=== PATIENT | female | born 1965 | race Caucasian/White ===

== ENCOUNTER 2016-05-24 08:30 | Outpatient (CLI) | payer OTHER ==
[~2016-05-24] VITALS: Ht 157.5 cm; Wt 59.1 kg
--- NOTE | ~2016-05-24 | HEMODYNAMI ---
PATIENT:SUPA MERINO MEDICAL RECORD: [id number] : 63 LOCATION:[facility] ADMISSION DATE: 05/24/16 Generatedon:05/24/201612:23 Patient name: SUPA MERINO Patient #: [id number] SSN: : 1965 Date of study: 05/24/2016 Page: Of Hemodynamic Procedure Report Patient Data Patient Demographics Procedure consent was obtained First Name: SUPA Gender: Female Last Name: ANGELIQUE : 1965 Middle Initial: R Age: 50 year(s) Patient #: [id number] Race: Additional ID: [id number] Contact details [address]: [address] [place] [address] State: [place] City: [place] Zip code: [address] Past Medical History Allergies Allergen Reaction Date Comments Reported Iodine 04/26/2015 IV contrast dye 04/26/2015 Admission Admission Data Admission Date: 05/24/2016 Admission Time: 8:30 Procedure Procedure Types Cath Procedure Peripheral Cath Diagnostic Procedure Abd/Extremity Extremities AFRO Lower Ext Arterio Procedure Description Procedure Date Procedure Date: 05/24/2016 Procedure Start Time: 10:55 Procedure Staff Name Function Fletcher Trujillo MD Performing Physician Carina Price RT Scrub Zac Cortez RT Monitor Lacie Landaverde RN Nurse Procedure Data Cath Procedure Fluoroscopy Diagnostic fluoroscopy Total fluoroscopy Time: time: 11.1 min 11.1 min Diagnostic fluoroscopy Total fluoroscopy dose: 889 dose: 889 mGy mGy Contrast Material Contrast Material Type Amount (ml) Isovue 300 156 Entry Location Entry Primary Successful Side Size Upsize Upsize Entry Closure Succes sful Closure Location (Fr) 1 (Fr) 2 (Fr) Remarks Device Remarks Femoral Right 5 Fr Exoseal artery Diagnostic catheters Device Type Used For End Catheter Placement Merit ULTRA BOLUS FLUSH Lower extremity 5Fr 65CM catheter arteriography Procedure Medications Medication Administration Route Dosage Oxygen NC 3 l/min Heparin Flush Bag added to field 3 bags (1000units/500ml NS) Lidocaine 1% added to field 20 Versed I.V. 1 mg Fentanyl I.V. 50 mcg Fentanyl I.V. 50 mcg Fentanyl I.V. 50 mcg Versed I.V. 1 mg Zofran I.V. 4 mg Versed I.V. 1 mg Fentanyl I.V. 50 mcg Versed I.V. 1 mg Solumedrol I.V. 125 mg Fentanyl I.V. 50 mcg Dilaudid I.V. 1 mg Nitroglycerin IC/IA I.A. 200 mcg Dilaudid I.V. 1 mg Versed I.V. 1 mg Fentanyl I.V. 50 mcg Versed I.V. 1 mg Hemodynamics Rest Heart Rate: 96 (bpm) Pressure Samples Time Site Value (mmHg) Purpose Heart Use Rate(bpm) 12:06 AO 131/88(109) Snapshot 94 12:06 AO 134/92(112) Snapshot 95 12:07 AO 132/89(110) Snapshot 93 12:07 AO 129/88(107) Snapshot 93 12:08 AO 116/88(102) Snapshot 91 12:08 AO 115/88(102) Snapshot 91 12:08 AO 114/90(102) Snapshot 92 12:08 AO 112/91(101) Snapshot 92 Snapshots Pre Cath Intra NCS Post Cath Vital Signs Time Heart Resp SPO2 NIBP (mmHg) Rhythm Pain Status Sedation Rate (ipm) (%) Level (bpm) 10:41:41 96 20 97 181/124(156) NSR 7 (11) , 10(A) Very intense 10:46:01 95 22 97 176/105(145) NSR 7 (11) , 10(A) Very intense 10:50:19 101 17 96 161/115(133) NSR 5 (11) , 10(A) Very distressing 10:54:37 100 17 96 150/101(113) NSR 5 (11) , 10(A) Very distressing 10:58:45 102 15 97 161/117(136) NSR 5 (11) , 10(A) Very distressing 11:02:57 99 17 97 148/107(128) NSR 4 (11) , 10(A) Distressing 11:07:03 98 22 95 149/107(130) NSR 3 (11) , 10(A) Tolerable 11:11:10 96 18 95 144/100(122) NSR 3 (11) , 10(A) Tolerable 11:15:16 99 26 97 145/101(131) NSR 3 (11) , 10(A) Tolerable 11:19:22 100 27 97 140/98(116) NSR 3 (11) , 10(A) Tolerable 11:23:26 102 28 96 137/103(113) NSR 3 (11) , 10(A) Tolerable 11:27:30 95 18 97 142/101(124) NSR 3 (11) , 10(A) Tolerable 11:31:35 96 13 97 142/103(122) NSR 3 (11) , 10(A) Tolerable 11:35:39 98 9 97 149/106(128) NSR 6 (11) , 10(A) Intense 11:39:47 95 28 96 156/112(137) NSR 6 (11) , 10(A) Intense 11:43:57 96 15 96 133/96(114) NSR 6 (11) , 10(A) Intense 11:47:58 95 25 96 142/100(125) NSR 6 (11) , 10(A) Intense 11:52:04 91 18 96 148/104(127) NSR 6 (11) , 10(A) Intense 11:56:12 93 15 96 144/104(122) NSR 4 (11) , 10(A) Distressing 12:00:18 95 23 96 135/103(121) NSR 3 (11) , 10(A) Tolerable 12:04:22 94 25 97 138/99(126) NSR 3 (11) , 10(A) Tolerable 12:08:27 92 14 97 131/90(111) NSR 3 (11) , 10(A) Tolerable 12:12:29 91 13 97 125/96(111) NSR 3 (11) , 10(A) Tolerable 12:16:37 92 22 95 120/78(107) NSR 3 (11) , 10(A) Tolerable 12:20:34 87 11 96 124/93(112) NSR 3 (11) , 10(A) Tolerable Medications Time Medication Route Dose Verified Delivered Reason Notes E ffectiveness by by 10:47:50 Fentanyl I.V. 50 mcg Lacie Lacie for knee King DELIA Landaverde RN pain 10:48:44 Oxygen NC 3 Lacie Lacie Per protocol l/min King DELIA Landaverde RN 10:49:19 Heparin Flush added 3 bags Lacie Lacie used for Bag to King DELIA Landaverde RN procedure (1000units/500ml field NS) 10:49:36 Lidocaine 1% added 20ml Lacie Lacie for local to vial King DELIA Landaverde RN anesthetic field 10:52:52 Versed I.V. 1 mg Lacie Lacie for sedation King DELIA Landaverde RN 10:53:16 Fentanyl I.V. 50 mcg Lacie Lacie for sedation King DELIA Landaverde RN 10:55:48 Fentanyl I.V. 50 mcg Lacie Lacie for knee King DELIA Landaverde RN pain 10:55:50 Versed I.V. 1 mg Lacie Lacie for sedation King DELIA Landaverde RN 11:00:54 Versed I.V. 1 mg Lacie Lacie for sedation King DELIA Landaverde RN 11:04:13 Zofran I.V. 4 mg Lacie Lacie for nausea King DELIA Landaverde RN 11:05:55 Versed I.V. 1 mg Lacie Lacie for sedation King DELIA Landaverde RN 11:06:03 Fentanyl I.V. 50 mcg Lacie Lacie for sedation King DELIA Landaverde RN 11:25:50 Solumedrol I.V. 125 mg Lacie Lacie For allergic King DELIA Landaverde RN reaction 11:26:08 Fentanyl I.V. 50 mcg Lacie Lacie for sedation King DELIA Landaverde RN 11:39:41 Dilaudid I.V. 1mg Lacie Lacie for back King DELIA Landaverde RN pain 11:42:54 Nitroglycerin I.A. 200mcg Lacie Fletcher for IC/IA Akhil DELIA Trujillo MD vasodilation 11:52:28 Dilaudid I.V. 1mg Lacie Lacie for back King DELIA Landaverde RN pain 12:04:26 Versed I.V. 1 mg Lacie Lacie for sedation King DELIA Landaverde RN 12:04:38 Fentanyl I.V. 50 mcg Lacie Lacie for sedation King DELIA Landaverde RN 12:11:20 Versed I.V. 1 mg Lacie Lacie for sedation King DELIA Landaverde terrazzo mechanic Log Time Note 8:50:16 Time tracking: Regular hours 8:50:34 Plan of Care:Hemodynamics will remain stable., Cardiac rhythm will remain stable., Comfort level will be maintained., Respiratory function will remain adequate., Patient/ family verbilizes understanding of procedure., Procedure tolerated without complication., Recovers from procedure without complications.. 10:23:03 Zac Dana RT (R) (CV) sent for patient. Start room use. 10:23:15 Correct patient and procedure confirmed by team. 10:23:16 Signed procedure consent form obtained from patient. 10:23:17 ECG and BP/O2 sat monitors applied to patient. 10:23:19 Full Disclosure recording started 10:23:19 - 10:23:23 H&P Date Dictated: 05/24/2016 H&P Addendum completed by physician on day of procedure. (MUST COMPLETE FOR ALL OUTPATIENTS). 10:23:24 Pre-procedure instructions explained to patient. 10:23:25 Pre-op teaching completed and patient verbalized understanding. 10:23:27 Family in waiting room. 10:23:32 Patient NPO since Midnight. 10:23:40 Is the patient allergic to Iodine/contrast media? No. 10:23:41 Is patient on blood thinner?Yes 10:23:45 ACC The patient was administered the following blood thiners within the last 24 hours: ACCAspirin, ACCPlavix 10:23:47 Patient diabetic? No. 10:23:48 - 10:23:49 ----Pre-sedation anethsthesia assessment.---- 10:23:52 Previous problem with sedation/anesthesia? No ? 10:23:53 Snore? Yes 10:23:55 Sleep apnea? No 10:23:57 Deviated septum? No 10:24:02 Opens mouth fully? Yes 10:24:11 Airway obstruction? No ? 10:24:17 Sticks out tongue? Yes 10:24:25 Dentures? No ? 10:24:30 Use device set IR Diagnostic 10:24:31 Sterile Angiographic Pack opened to sterile field. 10:24:32 Bag Decanter opened to sterile field. 10:24:33 Acist Manifold opened to sterile field. 10:24:33 Acist Hand Control opened to sterile field. 10:24:34 Acist Syringe opened to sterile field. 10:34:40 Pre procedure: right dorsailis pedis pulse Doppler 10:34:43 Pre procedure: left dorsailis pedis pulse Doppler 10:34:47 Pre procedure: right posterior tibial pulse Doppler 10:34:51 Pre procedure: left posterior tibial pulse Doppler 10:34:59 Patient pain scale 0/10 no pain. 10:35:26 IV patent on arrival in right wrist with 0.9% NaCl at 10ml/hr. 10:35:32 Alarms reviewed by R. N. 10:35:33 Sharps counted by scrub and verified by R.N. 10:35:37 Bilateral groins area was prepped with chlora-prep and draped in steril e fashion 10:37:08 Dr Trujillo arrived. Assessed patient . Procedure explained. 10:40:33 Vital chart was started 10:45:51 Baseline sample Acquired. 10:45:53 Rhythm: sinus rhythm 10:47:50 Fentanyl 50 mcg I.V. was given by Lacie Landaverde RN; for knee pain; 10:48:44 Oxygen 3 l/min NC was given by Lacie Landaverde RN; Per protocol; 10:49:19 Heparin Flush Bag (1000units/500ml NS) 3 bags added to field was given by Lacie Landaverde RN; used for procedure; 10:49:36 Lidocaine 1% 20ml vial added to field was given by Lacie Landaverde RN; for local anesthetic; 10:51:30 Physician arrived 10:51:30 --------ALL STOP TIME OUT------ 10:51:31 Final Timeout: patient, procedure, and site verified with staff and physician. All members of the team are in agreement. 10:51:34 Bilateral groins site verified by team. 10:51:47 Physical assessment completed. ASA score P 3 - A patient with severe systemic disease as per Fletcher Trujillo MD. 10:51:50 Sedation plan: IV Moderate Sedation Versed, Fentanyl 10:52:52 Versed 1 mg I.V. was given by Lacie Landaverde RN; for sedation; 10:53:16 Fentanyl 50 mcg I.V. was given by Lacie Landaverde RN; for sedation; 10:55:48 Fentanyl 50 mcg I.V. was given by Lacie Landaverde RN; for knee pain; 10:55:50 Versed 1 mg I.V. was given by Lacie Landaverde RN; for sedation; 10:55:53 Procedure started. 10:56:23 A 5 Fr sheath was inserted into the Right Femoral artery 10:56:59 Cook CaLivingBenefitsSON 145cm guide wire opened to sterile field. 10:56:59 St Diego 5FR Sheath opened to sterile field. 10:57:00 Micropuncture VSI 4FR kit opened to sterile field. 10:57:01 TUBING, CONTRAST INJCTN HI PRES opened to sterile field. 10:58:21 A numberFire ULTRA BOLUS FLUSH 5Fr 65CM catheter was advanced over the wire and used for Lower extremity arteriography. 11:00:54 Versed 1 mg I.V. was given by Lacie Landaverde RN; for sedation; 11:04:13 Zofran 4 mg I.V. was given by Lacie Landaverde RN; for nausea; 11:05:55 Versed 1 mg I.V. was given by Lacie Landaverde RN; for sedation; 11:06:03 Fentanyl 50 mcg I.V. was given by Lacie Landaverde RN; for sedation; 11:21:48 Terumo ANGLE 180L glide wire opened to sterile field. 11:21:49 Terumo 5FR ANGLED 65CM glide catheter opened to sterile field. 11:21:56 Terumo TORQUE DEVICE PLASTIC .038 opened to sterile field. 11:25:50 Solumedrol 125 mg I.V. was given by Lacie Landaverde RN; For allergic reaction; 11:26:08 Fentanyl 50 mcg I.V. was given by Lacie Landaverde RN; for sedation; 11:27:55 Terumo ANGLE 260cm glide wire opened to sterile field. 11:27:55 Terumo 5FR ANGLED 100CM glide catheter opened to sterile field. 11:39:41 Dilaudid 1mg I.V. was given by Lacie Akhil RN; for back pain; 11:42:54 Nitroglycerin IC/IA 200mcg I.A. was given by Fletcher Trujillo MD; for vasodilation; 11:50:35 Cordis 5Fr Exoseal opened to sterile field. 11:52:28 Dilaudid 1mg I.V. was given by Lacie Landaverde RN; for back pain; 12:04:26 Versed 1 mg I.V. was given by Lacie Landaverde RN; for sedation; 12:04:38 Fentanyl 50 mcg I.V. was given by Lacie Landaverde RN; for sedation; 12:06:13 Zero performed for pressure channel P1 12:11:20 Versed 1 mg I.V. was given by Lacie Landaverde RN; for sedation; 12:12:46 Sheath removed intact; hemostasis achieved with Exoseal to the Right Femoral artery. 12:12:49 Procedure ended.(Physican Out) 12:13:18 Fluoroscopy time 11.10 minutes. 12:13:25 Fluoroscopy dose: 889 mGy 12:13:25 Flurop Dose total: 889 12:13:34 Contrast amount:Isovue 300 156ml. 12:13:35 Sharps counted by scrub and verified by R.N. 12:13:37 Insertion/operative site no bleeding no hematoma. 12:13:41 Post-op/insertion site Right Femoral artery dressed using a 4 x 4 and Tegaderm. 12:13:45 Post right femoral artery:stable 12:13:47 Post Procedure Pulses reassessed and unchanged 12:13:51 Post-procedure physical assessment completed. ASA score P 3 - A patient with severe systemic disease as per Fletcher Trujillo MD. 12:13:54 Post procedure rhythm: unchanged. 12:21:30 Patient transfered to Outpatients with Bed. 12:21:41 Post procedure instruction explained to patient.Patient verbalizes understanding. 12:21:42 Procedure and supply charges have been captured, reviewed, submitted an d are correct. 12:21:45 Report given to Outpatients. 12:23:07 Vital chart was stopped Device Usage Item Name Manufacture Quantity Catalog Number Hospital Part Current Min imal Lot# / Charge Number Stock Stock Serial# Code Sterile Cardinal 1 [id number] 5 Angiographic Health Pack Bag Decanter Microtek 1 369008 68185 177424 [employer] Acist Acist 1 83889 034062 043971 221215 5 Manifold [employer] Inc Acist Hand Acist 1 49011 236572 531644 041226 5 Control Medical [employer] Inc Acist Syringe Acist 1 58351 678023 103486 603213 20 Medical Systems Inc Cook ROOSEVELTSON [employer] 1 [id number] 144486 850774 [id number] wire [address] Diego 5FR St Diego 1 302579 344493 897060 5 [id number] Sheath Micropuncture VSI VASCULAR 1 7266V 705571 704416 5 VSI 4FR kit SOLUTIONS TUBING, Merit 1 [id number] 405180 662488 048147 5 CONTRAST Medical INJCTN HI PRES Merit ULTRA Merit 1 [id number] 106736 270735 5 BOLUS FLUSH Medical 5Fr 65CM catheter Terumo ANGLE Terumo 1 [id number] 220179 652436 558376 5 180L glide wire Terumo 5FR Terumo 1 CG507 821220 984493 5 ANGLED 65CM glide catheter Terumo TORQUE [place] 1 TD01 133210 425575 956176 5 DEVICE Scientific PLASTIC .038 Terumo ANGLE Terumo 1 [id number] 510011 721728 588286 5 260cm glide wire Terumo 5FR Terumo 1 CG508 608618 86309 615492 4 ANGLED 100CM glide catheter Cordis 5Fr Cardinal 1 EX500 414762 094083 380906 10 [id number] Exoseal Health Signature Audit [place] Stage Time Signature Unsigned Intra-Procedure 05/24/2016 Zac 12:23:04 PM Dana RT (R) (CV) Signatures Monitor : Zac Signature : Dana RT Date : Time : [facility] [address] [place] [address]
[~2016-05-24 08:30] MED LIST: AMITRIPTYLINE H50 MG PO; ASPIRIN81 MG PO; BRILINTA90 MG PO; CATAPRES0.1 MG PO; LIPITOR80 MG PO; LISINOPRIL5 MG PO; LOPRESSOR25 MG PO; NICODERM C1 PATCH .1 TRANSDERM; NORVASC10 MG PO; ZESTORETIC 10/11 TAB PO
[2016-05-24 09:53] VITALS: BP 137/91; Ht 157.5 cm; Wt 59.1 kg
[2016-05-24 10:04] LABS: BASOPHILS 0 % (0.0-2.0); EOSINOPHILS 0 % (0-7); HEMATOCRIT 42.8 % (36.0-48.0); HEMOGLOBIN 14.5 g/dL (12-16); IMMATURE GRANULOCYTES 0.2 % (0-5); MCH 32.5 pg (26.0-34.0); MCHC 33.9 g/dL (31.0-37.0); MONOCYTES 0.2 % (2-11); NEUTROPHILS 85.6 % (40-80); PLATELET COUNT 357 10x3/uL (130-400); RBC 4.46 10x6/uL (4.00-5.40); RDW 12.4 % (11.5-14.5); WBC 4.1 10x3/uL (4.8-10.8)
[2016-05-24 10:20] LABS: ANION GAP 13.8 mmol/L (8-16); CALCIUM 9.2 mg/dL (8.5-10.1); CARBON DIOXIDE 27.2 mmol/L (21.0-32.0); CREATININE - SERUM 1.1 mg/dL (0.6-1.3)
[2016-05-24 10:23] LABS: APTT 28.7 SECONDS (22.8-39.4); INR 0.92 (0.85-1.17); PROTIME 12.2 SECONDS (11.6-15.0)
--- NOTE | 2016-05-24 12:51 | NUR ---
DILAUDID 2MG SLOW IVP FOR C/O GROIN PAIN.
--- NOTE | 2016-05-24 13:26 | NUR ---
NO CHANGE IN PAIN. STATES "I HAVE A COCKTAIL I GIVE MYSELF AT HOME FOR PAIN." NORCO 5MG PO FOR C/O PAIN.
--- NOTE | 2016-05-24 13:50 | NUR ---
STATES PAIN IS DOWN TO A "4".
--- NOTE | 2016-05-24 15:30 | NUR ---
DISCHARGE INSTRUCTIONS GIVEN, VOICED UNDERSTANDING. DISCHARGED HOME VIA .
== END 2016-05-24 15:30 | disposition home or self-care (01) ==
LOC: D.OPS 08:30 → D.RAD 11:00 → D.SP 11:00 → D.OPS 15:30 → D.RAD 05-26 08:00 → D.SP 05-26 08:00
PROVIDERS: General Practice
DX: I70.202 Unspecified atherosclerosis of native arteries of extremities, left leg (principal); M79.605 Pain in left leg; M79.604 Pain in right leg

== ENCOUNTER → 2016-06-06 09:00 | Outpatient (CLI) | payer OTHER ==
[2016-05-24 09:53] VITALS: BMI 23.8
[~2016-06-06 09:00] MED LIST changes: +AMBIEN5 MG PO; +BENADRYL50 MG; +BUSPAR 15 MG TA15 MG PO; +LEXAPRO20 MG PO; +PLAVIX75 MG PO; +PREDNISONE50 MG PO; +PREVACID30 MG PO
== END | disposition home or self-care (01) ==
LOC: D.CT 09:00
DX: I73.9 Peripheral vascular disease, unspecified (principal)

== ENCOUNTER 2016-07-04 05:39 | Outpatient (CLI) | payer OTHER ==
[~2016-07-04] VITALS: Ht 154.9 cm; Wt 54.5 kg
--- NOTE | ~2016-07-04 | HEMODYNAMI ---
PATIENT:SUPA MERINO MEDICAL RECORD: [id number] : 63 LOCATION:[facility] ADMISSION DATE: 07/04/16 Generatedon:07/04/201610:04 Patient name: SUPA MERINO Patient #: [id number] SSN: : 1965 Date of study: 07/04/2016 Page: Of Hemodynamic Procedure Report Patient Data Patient Demographics Procedure consent was obtained First Name: SUPA Gender: Female Last Name: ANGELIQUE : 1965 Middle Initial: R Age: 50 year(s) Patient #: [id number] Race: Additional ID: [id number] Contact details [address]: [address] [place] [address] State: [place] City: [place] Zip code: [address] Past Medical History Allergies Allergen Reaction Date Comments Reported Iodine 04/26/2015 IV contrast dye 04/26/2015 Admission Admission Data Admission Date: 07/04/2016 Admission Time: 5:39 Procedure Procedure Types Cath Procedure Peripheral Cath Diagnostic Procedure Miscellaneous Procedure Description Procedure Date Procedure Date: 07/04/2016 Procedure Start Time: 8:20 Procedure Staff Name Function Fletcher Trujillo MD Performing Physician Carina Price RT Scrub Nuria Jalloh RN Nurse Zac Cortez RT Monitor Procedure Data Cath Procedure Fluoroscopy Diagnostic fluoroscopy Total fluoroscopy Time: time: 10.7 min 10.7 min Diagnostic fluoroscopy Total fluoroscopy dose: 686 dose: 686 mGy mGy Contrast Material Contrast Material Type Amount (ml) Isovue 300 145 Entry Location Entry Primary Successful Side Size Upsize 1 Upsize Entry Closure Ramey ccessful Closure Location (Fr) (Fr) 2 (Fr) Remarks Device Remarks Femoral Right 5 Fr 6 Fr artery Mid-Length Diagnostic catheters Device Type Used For End Catheter Placement Merit ULTRA BOLUS FLUSH 5Fr 65CM catheter Procedure Medications Medication Administration Route Dosage Benadryl I.V. 50 mg Fentanyl I.V. 50 mcg Versed 1 mg Versed 1 mg Fentanyl I.V. 50 mcg Fentanyl I.V. 50 mcg Versed I.V. 1 mg Versed I.V. 1 mg Fentanyl I.V. 50 mcg Fentanyl I.V. 50 mcg Versed I.V. 1 mg Fentanyl I.V. 50 mcg Versed I.V. 1 mg Heparin Bolus I.V. 5000 units Versed I.V. 1 mg Fentanyl I.V. 50 mcg Nitroglycerin IC/IA I.A. 200 mcg Hemodynamics Rest Heart Rate: 90 (bpm) Snapshots Pre Cath Intra NCS Post Cath Vital Signs Time Heart Resp SPO2 NIBP (mmHg) Rhythm Pain Sedation Rate (ipm) (%) Status Level (bpm) 7:58:42 91 11 98 No Cuff NSR 0 (11) 10(A) , No pain 8:01:57 90 21 98 182/121(150) NSR 0 (11) 10(A) , No pain 8:06:17 91 23 96 171/118(143) NSR 0 (11) 10(A) , No pain 8:10:31 93 18 97 168/110(144) NSR 0 (11) 10(A) , No pain 8:14:45 91 14 98 151/112(128) NSR 0 (11) 10(A) , No pain 8:18:53 93 21 97 160/114(138) NSR 0 (11) 10(A) , No pain 8:23:05 95 19 98 158/110(138) NSR 0 (11) 10(A) , No pain 8:27:15 96 23 97 163/110(134) NSR 0 (11) 10(A) , No pain 8:31:26 93 15 98 157/103(132) NSR 0 (11) 9(A) , No pain 8:35:36 93 14 96 156/102(129) NSR 0 (11) 9(A) , No pain 8:39:46 86 13 98 141/95(114) NSR 0 (11) 9(A) , No pain 8:43:52 82 12 97 127/86(101) NSR 0 (11) 9(A) , No pain 8:47:54 79 15 98 124/83(100) NSR 0 (11) 9(A) , No pain 8:51:58 78 12 96 121/78(101) NSR 0 (11) 9(A) , No pain 8:55:59 77 12 98 114/76(92) NSR 0 (11) 9(A) , No pain 8:59:59 77 12 96 113/75(91) NSR 0 (11) 9(A) , No pain 9:03:56 77 14 96 117/81(96) NSR 0 (11) 9(A) , No pain 9:07:56 76 12 98 120/79(93) NSR 0 (11) 9(A) , No pain 9:11:56 77 14 97 120/80(94) NSR 0 (11) 9(A) , No pain 9:15:57 75 14 98 119/76(102) NSR 0 (11) 9(A) , No pain 9:19:59 75 13 98 119/77(101) NSR 0 (11) 9(A) , No pain 9:24:01 75 13 98 121/74(103) NSR 0 (11) 9(A) , No pain 9:28:00 75 13 98 125/83(109) NSR 0 (11) 9(A) , No pain 9:32:04 74 13 97 116/80(96) NSR 0 (11) 9(A) , No pain 9:36:04 73 13 98 121/79(94) NSR 0 (11) 9(A) , No pain 9:40:10 74 14 96 110/65(85) NSR 0 (11) 9(A) , No pain 9:44:07 80 19 97 117/80(95) NSR 0 (11) 9(A) , No pain 9:48:54 88 31 96 143/103(128) NSR 0 (11) 9(A) , No pain 9:52:58 89 13 98 158/114(135) NSR 0 (11) 9(A) , No pain 9:57:08 87 14 96 164/125(151) NSR 0 (11) 9(A) , No pain 10:01:20 87 13 97 162/119(147) NSR 0 (11) 9(A) , No pain Medications Time Medication Route Dose Verified Delivered Reason Notes Eff ectiveness by by 7:52:24 Benadryl I.V. 50 mg Nuria Nuria contrast Yeimi Jalloh allergy RN RN prophylaxis 8:03:43 Fentanyl I.V. 50 Nuria Nuria for sedation mcg Yeimi Jalloh RN RN 8:03:54 Versed 1 mg Nuria Nuria for sedation Yeimi Jalloh RN RN 8:08:33 Versed 1 mg Nuria Nuria for sedation Yeimi Jalloh RN RN 8:08:40 Fentanyl I.V. 50 Nuria Nuria for sedation mcg Yeimi Jalloh RN RN 8:20:26 Fentanyl I.V. 50 Nuria Nuria for sedation mcg Yeimi Jalloh RN RN 8:20:37 Versed I.V. 1 mg Nuria Nuria for sedation Yeimi Jalloh RN RN 8:25:43 Versed I.V. 1 mg Nuria Nuria for sedation Yeimi Jalloh RN RN 8:25:51 Fentanyl I.V. 50 Nuria Nuria for sedation mcg Yeimi Jalloh RN RN 8:30:52 Fentanyl I.V. 50 Nuria Nuria for sedation mcg Yeimi Jalloh RN RN 8:30:59 Versed I.V. 1 mg Nuria Nuria for sedation Yeimi Jalloh RN RN 8:35:02 Fentanyl I.V. 50 Nuria Nuria for sedation mcg Yeimi Jalloh RN RN 8:35:12 Versed I.V. 1 mg Nuria Nuria for sedation Yeimi Jalloh RN RN 8:45:41 Heparin Bolus I.V. 5000 Nuria Nuria for units Yeimi Yeimi anticoagulation RN RN 9:20:24 Versed I.V. 1 mg Nuria Nuria for sedation Yeimi Jalloh RN RN 9:20:33 Fentanyl I.V. 50 Nuria Nuria for sedation mcg Yeimi Yeimi RN RN 9:40:53 Nitroglycerin I.A. 200 Nuria Fletcher for IC/IA mcg Yeimi Trujillo MD vasodilation manager small business Log Time Note 7:42:27 Zac Cortez RT (R) (CV) sent for patient. Start room use. 7:43:09 Time tracking: Regular hours 7:43:26 Plan of Care:Hemodynamics will remain stable., Cardiac rhythm will remain stable., Comfort level will be maintained., Respiratory function will remain adequate., Patient/ family verbilizes understanding of procedure., Procedure tolerated without complication., Recovers from procedure without complications.. 7:43:40 Patient received from Outpatients to IR Alert and oriented. Tansferred to table in Supine position. 7:43:46 Correct patient and procedure confirmed by team. 7:43:48 Signed procedure consent form obtained from patient. 7:43:49 ECG and BP/O2 sat monitors applied to patient. 7:43:50 - 7:43:51 Full Disclosure recording started 7:43:57 H&P Date Dictated: 07/04/2016 H&P Addendum completed by physician on day of procedure. (MUST COMPLETE FOR ALL OUTPATIENTS). 7:44:00 Pre-procedure instructions explained to patient. 7:44:00 Pre-op teaching completed and patient verbalized understanding. 7:44:04 Family in waiting room. 7:44:05 Patient NPO since Midnight. 7:44:20 Use device set IR Diagnostic 7:44:22 Sterile Angiographic Pack opened to sterile field. 7:44:22 Bag Decanter opened to sterile field. 7:44:23 Acist Manifold opened to sterile field. 7:44:24 Acist Syringe opened to sterile field. 7:44:25 Acist Hand Control opened to sterile field. 7:48:38 Is the patient allergic to Iodine/contrast media? Yes. 7:48:40 Was the patient premedicated? No 7:48:45 Is patient on blood thinner?Yes 7:48:50 ACC The patient was administered the following blood thiners within the last 24 hours: ACCAspirin, ACCPlavix 7:48:52 Patient diabetic? No. 7:48:53 If diabetic: On Metformin? No 7:48:55 - 7:48:55 ----Pre-sedation anethsthesia assessment.---- 7:48:58 Previous problem with sedation/anesthesia? No ? 7:48:58 Snore? Yes 7:49:00 Sleep apnea? No 7:49:17 Deviated septum? No 7:49:25 Opens mouth fully? Yes 7:49:26 Sticks out tongue? Yes 7:49:30 Airway obstruction? No ? 7:49:32 Dentures? No ? 7:49:38 Pre procedure: left dorsailis pedis pulse Doppler 7:49:45 Pre procedure: left posterior tibial pulse Doppler 7:49:58 Pre procedure: right dorsailis pedis pulse Doppler 7:50:05 Pre procedure: right posterior tibial pulse 2+ Normal; easily identifiable; not easily obliterated 7:50:14 Patient pain scale 0/10 no pain. 7:50:23 IV patent on arrival in right hand with 0.9% NaCl at [facility]. 7:50:26 Sharps counted by scrub and verified by R.N. 7:50:26 Alarms reviewed by R. N. 7:50:31 Right groin area was prepped with chlora-prep and draped in sterile fashion 7:52:24 Benadryl 50 mg I.V. was administered by Nuria Jalloh RN; contrast allergy prophylaxis; 7:57:52 Vital chart was started 7:57:53 Baseline sample Acquired. 7:57:58 Rhythm: sinus rhythm 8:02:01 Physician arrived 8:03:43 Fentanyl 50 mcg I.V. was administered by Nuria Jalloh RN; for sedation; 8:03:54 Versed 1 mg was administered by Nuria Jalloh RN; for sedation; 8:08:33 Versed 1 mg was administered by Nuria Jalloh RN; for sedation; 8:08:40 Fentanyl 50 mcg I.V. was administered by Nuria Jalloh RN; for sedation; 8:14:01 --------ALL STOP TIME OUT------ 8:14:02 Final Timeout: patient, procedure, and site verified with staff and physician. All members of the team are in agreement. 8:14:05 Right groin site verified by team. 8:14:16 Sedation plan: IV Moderate Sedation Versed, Fentanyl 8:14:23 Physical assessment completed. ASA score P 2 - A patient with mild systemic disease as per Fletcher Trujillo MD. 8:20:26 Fentanyl 50 mcg I.V. was administered by Nuria Jalloh RN; for sedation; 8:20:37 Versed 1 mg I.V. was administered by Nuria Jalloh RN; for sedation; 8:20:41 Procedure started. 8:20:46 Local anesthetic to right femoral artery with Lidocaine 1% by Fletcher Trujillo MD.INITIAL ACCESS ONLY 8:21:37 A 5 Fr sheath was inserted into the Right Femoral artery 8:21:39 BasixTOUCH Inflation Syringe opened to sterile field. 8:21:43 A [employer] ULTRA BOLUS FLUSH 5Fr 65CM catheter was advanced over the wire and used for . 8:21:44 Cook DOC .035 guide wire opened to sterile field. 8:21:45 St Diego 5FR Sheath opened to sterile field. 8:21:54 TUBING, CONTRAST INJCTN HI PRES opened to sterile field. 8:21:55 Micropuncture VSI 4FR kit opened to sterile field. 8:25:43 Versed 1 mg I.V. was administered by Nuria Jalloh RN; for sedation; 8:25:51 Fentanyl 50 mcg I.V. was administered by Nuria Jalloh RN; for sedation; 8:26:44 Cook BALBUENA 260 guide wire opened to sterile field. 8:30:36 Terumo TORQUE DEVICE PLASTIC .038 opened to sterile field. 8:30:39 Terumo ANGLE 180L glide wire opened to sterile field. 8:30:52 Fentanyl 50 mcg I.V. was administered by Nuria Jalloh RN; for sedation; 8:30:59 Versed 1 mg I.V. was administered by Nuria Jalloh RN; for sedation; 8:32:04 Terumo 5FR ANGLED 65CM glide catheter opened to sterile field. 8:35:02 Fentanyl 50 mcg I.V. was administered by Nuria Jalloh RN; for sedation; 8:35:12 Versed 1 mg I.V. was administered by Nuria Jalloh RN; for sedation; 8:40:08 Sheath upsized to a 6 Fr Mid-Length. 8:40:39 [place] 1 Small Atherectomy catheter opened to sterile field. 8:41:20 [place] Sci Choice PT Floppy J 300cm 0.014 guide wi opened to sterile field. 8:45:41 Heparin Bolus 5000 units I.V. was administered by Nuria Jalloh RN; for anticoagulation; 9:05:23 Inflation number: 1 A IN.PACT Admiral 5.0 x 40 x 135 DCB Balloon was prepped and advanced across the Proximal Superficial Femoral, Left, then inflated to 0 HAYLEY for 2:53 (min:sec). 9:07:00 Terumo 5FR ANGLED 100CM glide catheter opened to sterile field. 9:19:14 CXI SUPPORT .035 135 CM STR catheter opened to sterile field. 9:20:24 Versed 1 mg I.V. was administered by Nuria Jalloh RN; for sedation; 9:20:33 Fentanyl 50 mcg I.V. was administered by Nuria Jalloh RN; for sedation; 9:24:12 Inflation number: 1 A Saber 2 x 2 x 150 balloon was prepped and advance d across the Undefined1, then inflated to 0 HAYLEY for 0:00 (min:sec). 9:32:16 Terumo ANGLE 260cm glide wire opened to sterile field. 9:40:53 Nitroglycerin IC/IA 200 mcg I.A. was administered by Fletcher Trujillo MD; fo r vasodilation; 9:44:15 Procedure ended.(Physican Out) 9:45:38 Fluoroscopy time 10.70 minutes. 9:45:46 Fluoroscopy dose: 686 mGy 9:45:46 Flurop Dose total: 686 9:45:52 Contrast amount:Isovue 300 145ml. 9:45:58 Sharps counted by scrub and verified by R.N. 9:46:13 sheath pulled manual pressure held 9:46:16 Insertion/operative site no bleeding no hematoma. 9:46:20 Post-op/insertion site Right Femoral artery dressed using a 4 x 4 and Tegaderm. 9:46:23 Post right femoral artery:stable 9:46:25 Post Procedure Pulses reassessed and unchanged 9:46:29 Post-procedure physical assessment completed. ASA score P 3 - A patient with severe systemic disease as per Fletcher Trujillo MD. 9:46:34 Post procedure rhythm: unchanged. 10:03:53 Post procedure instruction explained to patient.Patient verbalizes understanding. 10:03:54 Procedure and supply charges have been captured, reviewed, submitted an d are correct. 10:03:57 Report given to Outpatients. 10:04:03 Patient transfered to Outpatients with Bed. 10:04:55 Vital chart was stopped Intervention Summary Intervention Notes Time ActionType Lesion and Equipment Action# Pressure Duration Attributes Used 9:05:23 Inflate Proximal IN.PACT 1 0 02:53 balloon Superficial Admiral Femoral, 5.0 x 40 Left x 135 DCB Balloon 9:24:12 Inflate Undefined1 Saber 2 x 1 0 00:00 balloon 2 x 150 balloon Device Usage Item Name Manufacture Quantity Catalog Number Hospital Part Current [facility] Lot# / Charge Number Stock Stock Serial# Code Sterile Cardinal 1 [id number] 5 Angiographic Health Pack Bag Decanter Microtek 1 2002S [id number] 40930 905389 5 Medical Inc. Acist Acist 1 24668 625483 198919 476426 5 Manifold Medical Systems Inc Acist Syringe Acist 1 09908 256171 590481 038642 20 Medical Systems Inc Acist Hand Acist 1 67168 181397 066100 832957 5 Control Medical Systems Inc BasixTOUCH Merit 1 FC9070 823806 817302 453447 5 Inflation Medical Syringe Merit ULTRA Merit 1 [id number] 915817 260576 5 BOLUS FLUSH Medical 5Fr 65CM catheter Cook DOC .035 [facility] 1 W06344 909180 501930 [id number] [place] [address] [facility] 1 394968 236197 229220 5 0138613 Sheath TUBING, Merit 1 [id number] 493919 752076 522447 5 CONTRAST Medical INJCTN HI PRES Micropuncture VSI VASCULAR 1 7266V 832048 941234 5 VSI 4FR kit SOLUTIONS [facility] 1 Z98478 279728 686879 5 [id number] 260 guide wire Terumo TORQUE [place] 1 TD01 653782 325408 375628 5 DEVICE Scientific PLASTIC .038 Terumo ANGLE Terumo 1 [id number] 404034 478304 129096 5 180L glide wire Terumo 5FR Terumo 1 CG507 735523 558345 5 ANGLED 65CM glide catheter Turbohawk 1 Ev3 1 H1-S 505417 7877028 891090 5 Small Atherectomy catheter [place] Sci [place] 1 [id number] 143129 523701 5 Choice PT Scientific Floppy J 300cm 0.014 guide wi IN.PACT Medtronic 1 [id number] 658571 590833 226943 5 [id number] Admiral 5.0 x 40 x 135 DCB Balloon Terumo 5FR Terumo 1 CG508 759384 29753 685257 4 ANGLED 100CM glide catheter CXI SUPPORT Cook Medical 1 T46511 642269 526313 5 1926424 .035 135 CM STR catheter Saber 2 x 2 x Cardinal 1 [id number] 921838 010661 5 150 balloon Health Terumo ANGLE Terumo 1 ZT2810 155959 521167 239109 5 260cm glide wire Signature Audit Louann Stage Time Signature Unsigned Intra-Procedure 07/04/2016 Zac 10:04:51 AM Dana RT (R) (CV) Signatures Monitor : Zac Signature : Dana RT Date : Time : [place] [id number] [place] [id number]
[~2016-07-04 05:39] MED LIST changes: -AMBIEN5 MG PO; -BENADRYL50 MG; -BUSPAR 15 MG TA15 MG PO; -LEXAPRO20 MG PO; -PLAVIX75 MG PO; -PREDNISONE50 MG PO; -PREVACID30 MG PO
[2016-07-04 07:22] LABS: BASOPHILS 0 % (0.0-2.0); EOSINOPHILS 0.3 % (0-7); HEMOGLOBIN 14.7 g/dL (12-16); LYMPHOCYTES 15.3 % (15-50); MCHC 34.2 g/dL (31.0-37.0); MCV 93.7 fL (80.0-100.0); MEAN PLATELET VOLUME 9.1 fL (7.4-10.4); MONOCYTES 0.8 % (2-11); NEUTROPHILS 83.6 % (40-80); PLATELET COUNT 358 10x3/uL (130-400); RBC 4.59 10x6/uL (4.00-5.40); RDW 12.7 % (11.5-14.5); WBC 3.9 10x3/uL (4.8-10.8)
[2016-07-04] MEDS ORDERED: BUSPAR 15 MG TA15 MG PO (07:27)
[2016-07-04] MEDS ORDERED: AMBIEN5 MG PO (07:27)
[2016-07-04] MEDS ORDERED: PLAVIX75 MG PO (07:28)
[2016-07-04] MEDS ORDERED: LEXAPRO20 MG PO (07:28)
[2016-07-04] MEDS ORDERED: PREVACID30 MG PO (07:28)
[2016-07-04] MEDS ORDERED: BENADRYL50 MG (07:29)
[2016-07-04] MEDS ORDERED: PREDNISONE50 MG PO (07:29)
[2016-07-04 07:34] VITALS: BP 161/104; Ht 154.9 cm; Wt 54.5 kg
[2016-07-04 07:43] LABS: ANION GAP 13.4 mmol/L (8-16); CALCIUM 8.9 mg/dL (8.5-10.1); CARBON DIOXIDE 27.9 mmol/L (21.0-32.0); CREATININE - SERUM 0.9 mg/dL (0.6-1.3); POTASSIUM - SERUM 3.3 mmol/L (3.5-5.1)
[2016-07-04 07:44] LABS: APTT 28.3 SECONDS (22.8-39.4); INR 0.92 (0.85-1.17); PROTIME 12.2 SECONDS (11.6-15.0)
--- NOTE | 2016-07-04 13:33 | NUR ---
1100 C/O PAIN AT 8-9 ON PAIN SCALE WANTING ZOFRAN , MS 1MG IV WITH ZOFRAN 4MG IV FOR PAIN, ANNABELLE HERE TO SEE PT
--- NOTE | 2016-07-04 13:40 | NUR ---
1253 STILL C\O OF PAIN YOVANI JONES RN GAVE NORCO FOR PAIN RATED PAIN AT 8 , DARLIN GRUBBS RN IN ROOM AGAIN TALKING WITH PT , PPP IN LEFT FOOT ON TOP AND RIGHT ABLE TO FEEL BEHIND ANKLE, BOTH LEG AND FEET WARM TO TOUCH, BED FLAT,
--- NOTE | 2016-07-04 13:43 | NUR ---
VS TAKEN AND CHARTED AND POST OP SHEET
--- NOTE | 2016-07-04 17:27 | NUR ---
1420 ASKING FOR PAIN MED STATED PAIN WAS 7, MORPHINE 1MG IV GIVEN WANT ZOFRAN TO EARLY FOR ZOFRAN 1528 CALLING FOR ZOFRAN 4MG IV GIVEN, 1600 IV DC WITH CATHER TIP INTACT, 1610 AT ELEVATOR PT VOMTING , STILL WANTING TO GO
== END 2016-07-04 16:10 | disposition home or self-care (01) ==
LOC: D.OPS 05:39 → D.RAD 08:00 → D.OPS 08:00
PROVIDERS: General Practice
DX: I70.212 Atherosclerosis of native arteries of extremities with intermittent claudication, left leg (principal); Z88.5 Allergy status to narcotic agent; Z88.8 Allergy status to other drugs, medicaments and biological substances; Z79.899 Other long term (current) drug therapy

== ENCOUNTER 2018-02-02 11:36 | Emergency (ER) | payer SELFPAY ==
[~2018-02-02] VITALS: Ht 157.5 cm; Wt 55.0 kg
[~2018-02-02 11:36] MED LIST changes: +AMBIEN5 MG PO; +BENADRYL50 MG; +BUSPAR 15 MG TA15 MG PO; +LEXAPRO20 MG PO; +PLAVIX75 MG PO; +PREDNISONE50 MG PO; +PREVACID30 MG PO
[2018-02-02 11:42] VITALS: Ht 157.5 cm; Wt 55.0 kg
[2018-02-02 12:56] LABS: BASOPHILS 0.3 % (0-2); EOSINOPHILS 2.6 % (0-7); HEMATOCRIT 39.6 % (36.0-48.0); HEMOGLOBIN 13.6 g/dL (12-16); IMMATURE GRANULOCYTES 0.2 % (0-5); LYMPHOCYTES 24.5 % (15-50); MCH 32.2 pg (26.0-34.0); MCHC 34.3 g/dL (31.0-37.0); MCV 93.6 fL (80.0-100.0); MEAN PLATELET VOLUME 9.1 fL (7.4-10.4); MONOCYTES 4.7 % (2-11); NEUTROPHILS 67.7 % (40-80); PLATELET COUNT 391 10x3/uL (130-400); RBC 4.23 10x6/uL (4.00-5.40); RDW 13.2 % (11.5-14.5); WBC 11.1 10x3/uL (4.8-10.8)
[2018-02-02 13:21] LABS: ALBUMIN 3.6 g/dL (3.4-5.0); ALKALINE PHOSPHATASE 108 U/L (46-116); ALT (SGPT) 29 U/L (10-68); BILIRUBIN - TOTAL 0.22 mg/dL (0.2-1.3); CALC OSMOLALITY 279 mosm/kg (275-300); CALCIUM 8.9 mg/dL (8.5-10.1); CARBON DIOXIDE 28.7 mmol/L (21.0-32.0); CHLORIDE - SERUM 101 mmol/L (98-107); CKMB 0.1 U/L (0.0-3.6); CREATINE KINASE 36 UL (21-215); GLUCOSE 128 mg/dL (74-106); POTASSIUM - SERUM 4.1 mmol/L (3.5-5.1); PROTEIN - SERUM 7.3 g/dL (6.4-8.2); SODIUM 136 mmol/L (136-145); TROPONIN-I < 0.017 ng/mL (0.000-0.060); UREA NITROGEN 28 mg/dL (7-18)
[2018-02-02 13:26] LABS: eGFR NON AFRICAN AMERICAN 61 mL/min (90-120)
[2018-02-02 13:48] LABS: APPEARANCE CLEAR (CLEAR); BILIRUBIN NEGATIVE (NEGATIVE); COLOR YELLOW (YELLOW); GLUCOSE 250 mg/dL (NEGATIVE); KETONE NEGATIVE (NEGATIVE); NITRITE NEGATIVE (NEGATIVE); PROTEIN NEGATIVE (NEGATIVE); UROBILINOGEN NORMAL (NORMAL)
[2018-02-02] MEDS ORDERED: CORTISPORIN OTI10 M1 RIGHT EAR (15:58)
[2018-02-02] MEDS ORDERED: MECLIZINE HCL25 MG PO (15:58)
[2018-02-02] MEDS ORDERED: CATAPRES0.1 MG PO (15:58)
[2018-02-02 16:11] VITALS: BP 138/91
== END 2018-02-02 16:13 | disposition home or self-care (01) ==
LOC: D.ER 11:36
PROVIDERS: Emergency Medicine
DX: R42 Dizziness and giddiness (principal); I10 Essential (primary) hypertension

== ENCOUNTER 2019-10-15 07:36 | Inpatient (IN) | payer SELFPAY ==
[2019-10-15] VITALS (7 sets, daily range): BP systolic 165–209; BP diastolic 96–195; BMI 23.6
[~2019-10-15] VITALS: Ht 157.5 cm; Wt 54.4 kg
--- NOTE | ~2019-10-15 | HEMODYNAMI ---
PATIENT:SUPA MERINO MEDICAL RECORD: [id number] : 63 LOCATION:[address] [id number] ADMISSION DATE: 10/15/19 Generatedon:10/16/201911:34 Patient name: SUPA MERINO Patient #: [id number] SSN: : 1965 Date of study: 10/16/2019 Page: Of Hemodynamic Procedure Report Patient Data Patient Demographics Procedure consent was obtained First Name: SUPA Gender: Female Last Name: ANGELIQUE : 1965 Middle Initial: R Age: 53 year(s) Patient #: [id number] Race: Additional ID: [id number] Contact details [address]: [address] [place] [address] State: [place] City: [place] Zip code: [address] Past Medical History Allergies Allergen Reaction Date Comments Reported Iodine 04/26/2015 IV contrast dye 04/26/2015 Admission Admission Data Admission Date: 10/15/2019 Admission Time: 10:24 Room #: 2121 Insurance Payor: None Height (in.): 60 BSA: 1.5 (m2) Height (cm.): 152.4 BMI: 23.44 (kg/m2) Weight (lbs.): 120 Weight (kg.): 54.43 Lab Results Lab Result Date: 10/16/2019 Lab Result Time: 0:00 Biochemistry Name Units Result Min Max BUN mg/dl 11.1 --(-*--)-- 7 18 Creatinine mg/dl 0.9 --(-*--)-- 0.6 1.3 CBC Name Units Result Min Max Hemoglobin g/dl 13.7 --(*---)-- 13.5 17.5 Procedure Procedure Types Cath Procedure Diagnostic Procedure [facility] w/Coronaries Procedure Description Procedure Date Procedure Date: 10/16/2019 Procedure Start Time: 11:09 Procedure End Time: 11:32 Procedure Staff Name Function Daniel Prasad MD Performing Physician Aiden Griffiths RT Monitor Madeline Wiseman RT Scrub Delgado Irby RN Nurse Procedure Data Cath Procedure Fluoroscopy Diagnostic fluoroscopy Total fluoroscopy Time: 1.7 time: 1.7 min min Diagnostic fluoroscopy Total fluoroscopy dose: 297 dose: 297 mGy mGy Contrast Material Contrast Material Type Amount (ml) Isovue 300 63 Entry Location Entry Primary Successful Side Size Upsize Upsize Entry Closure Succes sful Closure Location (Fr) 1 (Fr) 2 (Fr) Remarks Device Remarks Femoral Right 5 Fr Exoseal artery Estimated blood loss: 10 ml Diagnostic catheters Device Type Used For End Catheter Placement MULTIPACK JL 4.0 5Fr Procedure catheter MULTIPACK 3DRC 5Fr Procedure catheter MULTIPACK Pigtail 5 Fr Procedure catheter Procedure Medications Medication Administration Route Dosage Zofran I.V. 4 mg Oxygen etCO2 Nasal cannula 2 l/min Lidocaine 2% added to field 20 Heparin Flush Bag added to field 2 bags (1000units/500ml NS) 0.9% NaCl I.V. 100 ml/hr Versed I.V. 2 mg Fentanyl I.V. 100 mcg Versed I.V. 2 mg Fentanyl I.V. 100 mcg Hemodynamics Rest BSA: 1.5 (m2) HGB: 13.7 (g/dl) O2 Consumption: Estimated: 157.91 (ml/min) O2 Con sumption indexed: Estimated:105.27 (ml/min/m) Heart Rate: 93 (bpm) Pressure Samples Time Site Value (mmHg) Purpose Heart Use Rate(bpm) 11:21 LV 108/7,12 Snapshot 69 11:22 AO 144/81(111) Pullback 85 11:22 LV 127/6,12 Pullback 85 Gradients Valve Time Site 1 Site 2 Mean SEP/DFP Peak To Heart Use (mmHg) (sec/min) Peak Rate (mmHg) (bpm) Aortic 11:22 LV AO 0 6 0 85 127/6,12 144/81(111) Calculations Valve P-P Mean Valve Index Valve Source Name Gradient Area Flow (cm2) Aortic 0 0 0 0 Snapshots Pre Cath Intra NCS Post Cath Vital Signs Time Heart Resp SPO2 etCO2 NIBP (mmHg) Rhythm Pain Sedation Rate (ipm) (%) (mmHg) Status Level (bpm) 10:50:36 90 19 97 0 196/122(165) NSR 0 (11) 10(A) , No pain 10:54:33 91 12 98 0 189/120(154) NSR 0 (11) 10(A) , No pain 10:58:31 88 18 96 0 194/123(162) NSR 0 (11) 10(A) , No pain 11:02:28 87 16 95 29.2 184/126(155) NSR 0 (11) 10(A) , No pain 11:06:22 86 18 98 32.9 169/109(140) NSR 0 (11) 10(A) , No pain 11:10:15 83 21 98 35.2 159/105(131) NSR 0 (11) 9(A) , No pain 11:14:07 74 22 98 0 139/91(113) NSR 0 (11) 9(A) , No pain 11:17:56 82 13 98 33.7 135/89(116) NSR 0 (11) 10(A) , No pain 11:21:52 83 13 99 30.7 92/74(81) NSR 0 (11) 10(A) , No pain 11:25:58 85 17 98 35.9 156/102(135) NSR 0 (11) 10(A) , No pain 11:29:57 98 34.4 No Cuff NSR 0 (11) 10(A) , No pain Medications Time Medication Route Dose Verified Delivered Reason Notes Eff ectiveness by by 11:03:25 Zofran I.V. 4 mg Daniel Buffie Per Osmar Irby RN physician 11:03:35 Oxygen etCO2 2 Daniel Buffie used for Nasal l/min Osmar Irby RN procedure cannula 11:03:42 Lidocaine 2% added 20ml Daniel Daniel for local to vial Osmar Prasad MD anesthetic field 11:03:47 Heparin Flush added 2 Daniel Daniel used for Bag to bags Osmar Prasad MD procedure (1000units/500ml field NS) 11:03:56 0.9% NaCl I.V. 100 Daniel Buffie Per ml/hr Osmar Irby RN physician 11:04:06 Versed I.V. 2 mg Daniel Buffie for Osmar Irby RN sedation 11:04:11 Fentanyl I.V. 100 Daniel Buffie for mcg Osmar Irby RN sedation 11:09:24 Versed I.V. 2 mg Daniel Buffie for Prasad MD Irby RN sedation 11:09:28 Fentanyl I.V. 100 Daniel sanchez [facility] Osmar Irby RN sedation Procedure Log Time Note 10:17:48 Diagnostic Cath Status : Urgent 10:18:04 Aiden Griffiths RT(R) (CV) sent for patient. Start room use. 10:18:05 Time tracking: Regular hours (M-F 7:00 - 5:00) 10:18:10 Plan of Care:Hemodynamics will remain stable., Cardiac rhythm will remain stable., Comfort level will be maintained., Respiratory function will remain adequate., Patient/ family verbilizes understanding of procedure., Procedure tolerated without complication., Recovers from procedure without complications.. 10:27:32 Lab Result : BUN 11.1 mg/dl 10:27:32 Lab Result : Creatinine 0.9 mg/dl 10:27:32 Lab Result : Hemoglobin 13.7 g/dl 10:27:39 Lab results completed and on chart. 10:45:11 Patient received from Med II to [facility] 2 Alert and oriented. Tansferred to table in Supine position. 10:49:14 Signed procedure consent form obtained from patient. 10:49:15 Warm blankets applied, and altaf hugger turned on for patient comfort. 10:49:16 Correct patient and procedure confirmed by team. 10:49:18 ECG and BP/O2 sat monitors applied to patient. 10:49:23 Vital chart was started 10:49:25 Baseline sample Acquired. 10:49:32 Rhythm: sinus rhythm 10:49:34 Full Disclosure recording started 10:50:18 H&P Date Dictated: 10/15/2019 Within 30 days and on chart.. 10:50:21 Pre-procedure instructions explained to patient. 10:50:26 Family in waiting room. 10:50:28 Patient NPO since Midnight. 10:52:23 Is the patient allergic to Iodine/contrast media? Yes. 10:52:26 Was the patient premedicated? Yes 10:52:29 Is patient on blood thinner?Yes 10:52:35 ACC The patient was administered the following blood thiners within the last 24 hours: ACCPlavix 10:53:08 Patient Height : 60 inches 10:53:13 Patient Weight : 120 lbs 10:55:49 Bleeding risk 0.8%%. 10:55:53 Patient diabetic? No. 10:56:07 ----Pre-sedation anethsthesia assessment.---- 10:56:19 Previous problem with sedation/anesthesia? No ? 10:56:21 Snore? Yes 10:56:23 Sleep apnea? No 10:56:25 Deviated septum? No 10:56:26 Opens mouth fully? Yes 10:56:27 Sticks out tongue? Yes 10:56:30 Airway obstruction? No ? 10:56:36 Dentures? No ? 10:56:40 Pre procedure: right dorsailis pedis pulse 1+ Palpable, but thready & weak; easily obliterated 10:56:49 Patient pain scale 0/10 ?. 10:56:56 IV patent on arrival in left hand with 0.9% NaCl at [facility]. 10:57:11 Risk of Mortality: 1.2% 10:57:23 Risk of blood transfusion: 0.8% 10:57:29 Risk of CARA: 7.2% 10:57:34 Right groin area was prepped with chlora-prep and draped in sterile fashion 10:57:35 Alarms reviewed by R. N. 10:57:36 Sharps counted by scrub and verified by R.N. 10:58:57 Physician arrived 10:58:57 --------ALL STOP TIME OUT------ 10:58:59 Final Timeout: patient, procedure, and site verified with staff and physician. All members of the team are in agreement. 10:59:04 Right groin site verified by team. 10:59:09 Fire Safety Assessment: A--An alcohol-based skin anteseptic being used preoperatively., C--Open oxygen or nitrous oxide is being used., D--An ESU, laser, or fiber-optic light is being used. 10:59:14 Physical assessment completed. ASA score P 2 - A patient with mild systemic disease as per Daniel Prasad MD. 10:59:36 2) 60-89 Mildly reduced kidney function, and other findings (as for stage 1) point to kidney disease. 11:00:11 Maximum allowable contrast dose (3.7 X eGFR X 0.75)191 ml. 11:00:19 Sedation plan: IV Moderate Sedation Medication:Versed, Fentanyl 11:00:39 Insurance Payor : None 11:03:17 Patient not . Patient has had tubal. 11:03:25 Zofran 4 mg I.V. was administered by Delgado Irby RN; Per physician; Verbal order read back and verified. 11:03:35 Oxygen 2 l/min etCO2 Nasal cannula was administered by Delgado Irby RN; used for procedure; Verbal order read back and verified. 11:03:42 Lidocaine 2% 20ml vial added to field was administered by Daniel Prasad MD; for local anesthetic; Verbal order read back and verified. 11:03:47 Heparin Flush Bag (1000units/500ml NS) 2 bags added to field was administered by Daniel Prasad MD; used for procedure; Verbal order read back and verified. 11:03:56 0.9% NaCl 100 ml/hr I.V. was administered by Delgado Irby RN; Per physician; Verbal order read back and verified. 11:04:06 Versed 2 mg I.V. was administered by Delgado Irby RN; for sedation; Verbal order read back and verified. 11:04:11 Fentanyl 100 mcg I.V. was administered by Delgado Irby RN; for sedation; Verbal order read back and verified. 11:04:51 Use device set Femoral Dx 11:04:53 ACIST Syringe (02812) opened to sterile field. 11:04:57 Bag Decanter (2002S) opened to sterile field. 11:04:58 Medline Cath Pack ([id number]) opened to sterile field. 11:05:00 ACIST Hand Control (54469) opened to sterile field. 11:05:01 ACIST Manifold (27654) opened to sterile field. 11:05:03 DIAGNOSTIC Multipack 5Fr catheter set (PN0962) opened to sterile field. 11:05:06 SHEATH 5FR [place] (ORZ684) opened to sterile field. 11:05:07 EMERALD Guide Wire (875-059) opened to sterile field. 11:09:06 Procedure started. 11:09:13 Local anesthetic to right femoral artery with Lidocaine 2% by Daniel Prasad MD.INITIAL ACCESS ONLY 11:09:24 Versed 2 mg I.V. was administered by Delgado Irby RN; for sedation; Verbal order read back and verified. 11:09:28 Fentanyl 100 mcg I.V. was administered by Delgado Irby RN; for sedation; Verbal order read back and verified. 11:09:28 Tegaderm 4 x 4 (1626W) opened to sterile field. 11:11:45 A 5 Fr sheath was inserted into the Right Femoral artery 11:12:47 A MULTIPACK JL 4.0 5Fr catheter was advanced over the wire and used for Procedure. 11:13:15 LCA angiography performed. 11:16:39 Catheter removed. 11:17:37 A MULTIPACK 3DRC 5Fr catheter was advanced over the wire and used for Procedure. 11:19:02 RCA angiography performed. 11:20:10 Catheter removed. 11:21:25 A MULTIPACK Pigtail 5 Fr catheter was advanced over the wire and used for Procedure. 11:22:04 LV gram done using CHUA 11:22:06 LV hemodynamics recorded. 11:22:12 EF : 60 % 11:22:34 Catheter removed. 11:22:38 EXOSEAL 5Fr (EX500) opened to sterile field. 11:23:30 Sheath removed intact; hemostasis achieved with Exoseal to the Right Femoral artery. 11:23:34 Procedure ended.(Physican Out) 11:24:10 Fluoroscopy time 01.70 minutes. 11:24:21 Fluoroscopy dose: 297 mGy 11:24:21 Flurop Dose total: 297 11:24:30 Dose Area Product 40 mGy/cm. 11:24:37 Contrast amount:Isovue 300 63ml. 11:24:41 Maximum allowable dose exceeded? No. 11:24:50 Sharps counted by scrub and verified by R.N. 11:25:41 [facility] Findings: MVD- CABG consult 11:26:58 Insertion/operative site no bleeding no hematoma. 11:27:01 Post-op/insertion site Right Femoral artery dressed using a 4 x 4 and Tegaderm. 11:27:14 Post right femoral artery:stable 11:27:24 Post procedure: right dorsailis pedis pulse 1+ Palpable, but thready & weak; easily obliterated. 11:27:50 Post-procedure physical assessment completed. ASA score P 2 - A patient with mild systemic disease as per Daniel Prasad MD. 11:28:29 Post procedure rhythm: sinus rhythm 11:30:55 Estimated blood loss: 10 ml 11:31:18 Patient needs reinforcement of post procedure teaching. 11:31:43 Procedure and supply charges have been captured, reviewed, submitted and are correct. 11:31:49 Vital chart was stopped 11:31:55 Operative report dictated upon procedure completion. 11:31:56 See physician's report for complete and final results. 11:31:59 Report given to [facility]. 11:32:06 Patient transfered to [facility] with Stretcher. 11:32:10 Procedure ended. 11:32:10 Full Disclosure recording stopped Device Usage Item Name Manufacture Quantity Catalog Hospital Part Current Minimal L ot# / Number Charge Number Stock Stock Serial# Code ACIST Acist 1 78348 [id number] 570568 [id number] 20 Syringe Medical (96536) Systems Inc Bag Microtek 1 2001S 917514 12215 483737 5 Decanter Medical Inc. () Medline Medline 1 [id number] 139005 92154 091008 5 Cath Pack ([id number]) ACIST Hand Acist 1 70359 394224 102921 212613 5 Control Medical (20458) Systems Inc ACIST Acist 1 61875 201500 548401 715042 5 Manifold Medical (57096) Systems Inc DIAGNOSTIC Cardinal 1 [id number] 434884 54677 143656 30 Multipack Health 5Fr catheter set (JN6514) SHEATH 5FR Terumo 1 [id number] 428112 615792 149728 5 [place] (DLZ345) EMERALD Cardinal 1 502-455 589154 841565 368115 5 Guide Wire [facility] (502-455) Tegaderm 4 3M 1 1626W 705838 214345 964196 5 x 4 (1626W) MULTIPACK Cardinal 1 735353 5 JL 4.0 5Fr Health catheter MULTIPACK Cardinal 1 [id number] 5 3DRC 5Fr Health catheter MULTIPACK Cardinal 1 824397 5 Pigtail 5 Health Fr catheter EXOSEAL 5Fr Cardinal 1 EX500 518988 212991 654132 10 (EX500) Health Signature Audit [place] Stage Time Signature Unsigned Intra-Procedure 10/16/2019 Aiden Griffiths 11:32:35 AM RT(R) (CV); Delgado Irby RN; Daniel Prasad MD Signatures Performing Physician : Signature : Daniel Prasad MD Date : Time : Monitor : Aiden Griffiths RT Signature : Date : Time : Nurse : Buffie Irby RN Signature : Date : Time : [address] [place] [address]
[~2019-10-15 07:36] MED LIST changes: +CORTISPORIN OTI10 M1 RIGHT EAR; +MECLIZINE HCL25 MG PO
[2019-10-15] MEDS ORDERED: TRIBENZOR 40-11 EAC1 PO (07:46)
[2019-10-15 08:34] LABS: BASOPHILS 0.3 % (0-2); EOSINOPHILS 2.5 % (0-7); HEMATOCRIT 43.8 % (36.0-48.0); HEMOGLOBIN 15.2 g/dL (12-16); IMMATURE GRANULOCYTES 0.2 % (0-5); LYMPHOCYTES 16.4 % (15-50); MCH 32.4 pg (26.0-34.0); MCHC 34.7 g/dL (31.0-37.0); MCV 93.4 fL (80.0-100.0); MEAN PLATELET VOLUME 8.7 fL (7.4-10.4); MONOCYTES 5.2 % (2-11); NEUTROPHILS 75.4 % (40-80); PLATELET COUNT 340 10x3/uL (130-400); RBC 4.69 10x6/uL (4.00-5.40); RDW 12.7 % (11.5-14.5); WBC 10.8 10x3/uL (4.8-10.8)
[2019-10-15 08:36] LABS: APTT 28.7 SECONDS (22.8-39.4); INR 0.94 (0.85-1.17); PROTIME 12.5 SECONDS (11.6-15.0)
[2019-10-15 08:42] LABS: CALC OSMOLALITY 283 mosm/kg (275-300); CALCIUM 9.2 mg/dL (8.5-10.1); CARBON DIOXIDE 29.5 mmol/L (21.0-32.0); CHLORIDE - SERUM 103 mmol/L (98-107); GLUCOSE 132 mg/dL (74-106); POTASSIUM - SERUM 3.2 mmol/L (3.5-5.1); SODIUM 141 mmol/L (136-145); UREA NITROGEN 16 mg/dL (7-18); eGFR NON AFRICAN AMERICAN 61 mL/min (90-120)
[2019-10-15 08:57] LABS: ALBUMIN 3.8 g/dL (3.4-5.0); ALKALINE PHOSPHATASE 120 U/L (30-120); ALT (SGPT) 14 U/L (10-68); AMYLASE - SERUM 56 U/L (25-115); BILIRUBIN - TOTAL 0.24 mg/dL (0.2-1.3); CKMB 0.7 U/L (0.0-3.6); CREATINE KINASE 38 UL (21-215); LIPASE 74 U/L (73-393); MAGNESIUM - SERUM 2.3 mg/dL (1.8-2.4); PROTEIN - SERUM 7.1 g/dL (6.4-8.2); TROPONIN-I < 0.017 ng/mL (0.000-0.060)
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
[2019-10-15 15:15] LABS: CHOL - HDL RATIO 6.7 ratio (2.3-4.1); LDL-HDL RATIO 4.9 ratio (1.5-3.5)
[2019-10-15 16:14] LABS: CKMB 0.7 U/L (0.0-3.6); CREATINE KINASE 37 UL (21-215)
[2019-10-15 16:18] LABS: TROPONIN-I < 0.017 ng/mL (0.000-0.060)
[2019-10-15 17:00] LABS: CHOL - HDL RATIO 5.9 ratio (2.3-4.1); LDL-HDL RATIO 4.5 ratio (1.5-3.5)
[2019-10-15 21:01] LABS: CKMB 0.6 U/L (0.0-3.6); CREATINE KINASE 46 UL (21-215); TROPONIN-I < 0.017 ng/mL (0.000-0.060)
[2019-10-16] VITALS: BP 145/90
[2019-10-16 02:32] LABS: BASOPHILS 0.2 % (0-2); EOSINOPHILS 0 % (0-7); HEMOGLOBIN 13.7 g/dL (12-16); IMMATURE GRANULOCYTES 0.2 % (0-5); LYMPHOCYTES 19.4 % (15-50); MCHC 34.3 g/dL (31.0-37.0); MCV 93.5 fL (80.0-100.0); MEAN PLATELET VOLUME 8.6 fL (7.4-10.4); MONOCYTES 1.1 % (2-11); NEUTROPHILS 79.1 % (40-80); PLATELET COUNT 333 10x3/uL (130-400); RBC 4.28 10x6/uL (4.00-5.40); RDW 12.5 % (11.5-14.5); WBC 5.5 10x3/uL (4.8-10.8)
[2019-10-16 02:53] LABS: ALBUMIN 3.2 g/dL (3.4-5.0); ALKALINE PHOSPHATASE 108 U/L (30-120); ALT (SGPT) 16 U/L (10-68); BILIRUBIN - TOTAL 0.26 mg/dL (0.2-1.3); CALCIUM 8.7 mg/dL (8.5-10.1); CARBON DIOXIDE 26.1 mmol/L (21.0-32.0); CHLORIDE - SERUM 105 mmol/L (98-107); CKMB 0.8 U/L (0.0-3.6); CREATINE KINASE 36 UL (21-215); CREATININE - SERUM 0.9 mg/dL (0.6-1.3); GLUCOSE 121 mg/dL (74-106); POTASSIUM - SERUM 3.5 mmol/L (3.5-5.1); PROTEIN - SERUM 6.9 g/dL (6.4-8.2); SODIUM 139 mmol/L (136-145); eGFR NON AFRICAN AMERICAN 69 mL/min (90-120)
[2019-10-16 02:57] LABS: CALC OSMOLALITY 277 mosm/kg (275-300); TROPONIN-I < 0.017 ng/mL (0.000-0.060); UREA NITROGEN 11 mg/dL (7-18)
[2019-10-16 04:00] VITALS: BP 171/108
[2019-10-16 08:00] VITALS: BP 157/95
--- NOTE | 2019-10-16 10:40 | NUR ---
PRE-OPS GIVEN. TO BARREL BURNER BY BED.
[2019-10-16 11:00] VITALS: BP 171/105
[2019-10-16] MEDS ORDERED: METOPROLOL TART50 MG PO (11:06)
--- NOTE | 2019-10-16 11:49 | NUR ---
BACK FROM MAINTENANCE SUPERVISOR ELECTRICAL. VS WNL. RIGHT GROIN STABLE WITHOUT BLEEDING OR HEMATOMA NOTED. WILL MONITOR.
--- NOTE | 2019-10-16 13:20 | NUR ---
BED REST UP. GROIN STABLE.
--- NOTE | 2019-10-16 13:31 | MORECARE ---
CASE MANAGEMENT DISCHARGE SUMMARY PATIENT: SUPA MERINO UNIT: [id number] ADM DATE: 10/15/19 AGE: 53 : 63 SEX: F ROOM/BED: D.2121 AUTHOR: [facility] PHYSICIAN: REFERRING PHYSICIAN: NIC GUTIÉRREZ MD DATE OF SERVICE: 10/16/19 Discharge Plan Patient Name: SUPA MERINO Facility: [facility]:[place] : 1965 Planned Disposition: Home Anticipated Discharge Date: Discharge Date: Expected LOS: Initial Reviewer: [email or web address] Initial Review Date: 10/15/2019 Generated: 10/16/19 2:30 pm Patient Name: SUPA MERINO Page 88886 at 1331 All edits/amendments must be made on the electronic document DICTATION DATE: 10/16/19 1330 SPRING INTERN: HUGH 10/16/19 1330 RPT#: [id number] DC DATE: STATUS: ADM IN [facility] [address] [place] [address] END OF REPORT
--- NOTE | 2019-10-16 13:39 | MORECARE ---
CASE MANAGEMENT DISCHARGE SUMMARY PATIENT: SUPA MERINO UNIT: [id number] ADM DATE: 10/15/19 AGE: 53 : 63 SEX: F ROOM/BED: D.0983 AUTHOR: [facility]AST PHYSICIAN: REFERRING PHYSICIAN: NIC GUTIÉRREZ MD DATE OF SERVICE: 10/16/19 Discharge Plan Patient Name: SUPA MERINO Facility: [facility]:[place] : 1965 Planned Disposition: Home Anticipated Discharge Date: Discharge Date: Expected LOS: Initial Reviewer: [email or web address] Initial Review Date: 10/15/2019 Generated: 10/16/19 2:39 pm Comments DCP- Discharge Planning Updated by [email or web address]: Catrachita Majano on 10/16/19 12:[address] Patient Name: SUPA MERINO Admission Status: ER Accout number: [id number] Admission Date: 10-15-2019 : 1965 Admission Diagnosis: Attending: NIC GUTIÉRREZ Current LOS: 1 Anticipated DC Date: Planned Disposition: Home Primary Insurance: UNINSURED DISCOUNT PLAN Discharge Planning Comments: CM met with patient to complete initial dc planning assessment. CM educated patient on the CM role and verbal consent given by patient to complete assessment. CM verified patient's address, phone number, and emergency contact phone numbers. Patient lives at home with her . Her daughter and grandchildren live with them. At discharge patient plans to return home and feels this is a safe discharge. CM discussed availability of home health, rehab services, and medical equipment. Patient unknown of needs at this time. Transportation provider at discharge will be her . CM will continue to follow and will assist as needed with dc plans/needs. Hide And Skin Processing Worker: Catrachita Majano Last DP export: 10/16/19 12:31 p Patient Name: SUPA MERINO Page 62913 at 1330 All edits/amendments must be made on the electronic document DICTATION DATE: 10/16/19 1339 BOW MAKER MACHINE TENDER: HUGH 10/16/19 1339 RPT#: [id number] DC DATE: STATUS: ADM IN [facility] [address] [place] [address] END OF REPORT
[2019-10-16 15:00] VITALS: BP 167/104
[2019-10-16 20:00] VITALS: BP 157/114
[2019-10-17 04:00] VITALS: BP 145/99
[2019-10-17 06:45] LABS: PLT FUNCT.(P2Y12) PLAVIX 117 PRU (194-418)
[2019-10-17 08:00] VITALS: BP 143/95
[2019-10-17 11:00] VITALS: BP 162/114
--- NOTE | 2019-10-17 12:17 | NUR ---
PT WITH ELEVATED BP, 162/114. ORAL MEDS GIVEN THIS MORNING. PRN IV APRESOLINE GIVEN NOW. PT WITH SOME NAUSEA AND DRY HEAVES TODAY. PROTONIX GIVEN FOR GI UPSET.
[2019-10-17 15:06] VITALS: Ht 157.5 cm; Wt 54.4 kg
[2019-10-17 16:19] VITALS: BP 174/106
[2019-10-17 20:30] VITALS: BP 131/99
[2019-10-18 00:45] VITALS: BP 102/72
[2019-10-18 04:58] VITALS: BP 115/80
[2019-10-18 08:30] VITALS: BP 159/106
[2019-10-18 11:30] VITALS: BP 148/111
[2019-10-18 14:50] LABS: ANION GAP 13.2 mmol/L (8-16); CALCIUM 9.3 mg/dL (8.5-10.1); CARBON DIOXIDE 24.9 mmol/L (21.0-32.0); CREATININE - SERUM 1.1 mg/dL (0.6-1.3); POTASSIUM - SERUM 3.1 mmol/L (3.5-5.1)
[2019-10-18 15:30] VITALS: BP 143/90
[2019-10-18 20:00] VITALS: BP 129/93
[2019-10-19] VITALS: BP 102/70
--- NOTE | 2019-10-19 01:19 | NUR ---
2ND DOSE OF PREDNISONE GIVEN.
[2019-10-19 04:00] VITALS: BP 108/73
--- NOTE | 2019-10-19 06:59 | NUR ---
ALL ORDERED DOSES OF PREDNISONE GIVEN FOR PT'S SHCEDULED CTA OF CAROTIDS W/WO CONTRAST TODAY.
[2019-10-19 07:11] LABS: BASOPHILS 0.2 % (0-2); EOSINOPHILS 0 % (0-7); HEMATOCRIT 44.6 % (36.0-48.0); HEMOGLOBIN 15.3 g/dL (12-16); IMMATURE GRANULOCYTES 0.3 % (0-5); LYMPHOCYTES 20.1 % (15-50); MCH 32.1 pg (26.0-34.0); MCHC 34.3 g/dL (31.0-37.0); MCV 93.7 fL (80.0-100.0); MONOCYTES 1.5 % (2-11); NEUTROPHILS 77.9 % (40-80); PLATELET COUNT 372 10x3/uL (130-400); RBC 4.76 10x6/uL (4.00-5.40); RDW 12.5 % (11.5-14.5); WBC 5.8 10x3/uL (4.8-10.8)
[2019-10-19 07:30] LABS: ANION GAP 17.7 mmol/L (8-16); CALCIUM 9.2 mg/dL (8.5-10.1); CARBON DIOXIDE 22.8 mmol/L (21.0-32.0); CREATININE - SERUM 1.1 mg/dL (0.6-1.3); MAGNESIUM - SERUM 2.2 mg/dL (1.8-2.4); POTASSIUM - SERUM 3.5 mmol/L (3.5-5.1)
[2019-10-19 13:30] VITALS: BP 116/81
[2019-10-19 20:20] VITALS: BP 131/106
--- NOTE | 2019-10-19 22:26 | NUR ---
DULCOLAX 5MG PO GIVEN FOR C/O CONSTIPATION WITH PM MEDS. PT WATCHING TV AT HTIS TIME. NO DISTRESS NOTED.
--- NOTE | 2019-10-20 00:26 | NUR ---
VSS. NO DISTRESS NOTED. CALL LIGHT WITHIN REACH.
--- NOTE | 2019-10-20 02:33 | NUR ---
PT RESTING WITH EYES CLOSED. RESP EVEN AND REGULAR. CALL LIGHT WITHIN REACH.
[2019-10-20 04:00] VITALS: BP 108/74
--- NOTE | 2019-10-20 04:05 | NUR ---
PT RESTING WITH EYES CLOSED. RESP EVEN AND REGULAR. CALL LIGHT WITHIN REACH.
[2019-10-20 05:21] LABS: BASOPHILS 0 % (0-2); EOSINOPHILS 0.1 % (0-7); HEMATOCRIT 42.1 % (36.0-48.0); HEMOGLOBIN 14.4 g/dL (12-16); IMMATURE GRANULOCYTES 0.4 % (0-5); LYMPHOCYTES 14.6 % (15-50); MCH 31.6 pg (26.0-34.0); MCHC 34.2 g/dL (31.0-37.0); MCV 92.5 fL (80.0-100.0); MEAN PLATELET VOLUME 9.1 fL (7.4-10.4); MONOCYTES 7.2 % (2-11); NEUTROPHILS 77.7 % (40-80); PLATELET COUNT 410 10x3/uL (130-400); RBC 4.55 10x6/uL (4.00-5.40); RDW 12.2 % (11.5-14.5)
[2019-10-20 05:26] LABS: INR 0.92 (0.85-1.17); PROTIME 12.3 SECONDS (11.6-15.0)
[2019-10-20 05:27] LABS: WBC 12.7 10x3/uL (4.8-10.8)
[2019-10-20 05:45] LABS: ALBUMIN 3.5 g/dL (3.4-5.0); ANION GAP 10.7 mmol/L (8-16); BILIRUBIN - TOTAL 0.37 mg/dL (0.2-1.3); CALCIUM 9.4 mg/dL (8.5-10.1); CREATININE - SERUM 1.3 mg/dL (0.6-1.3); MAGNESIUM - SERUM 2.2 mg/dL (1.8-2.4); POTASSIUM - SERUM 3.1 mmol/L (3.5-5.1); PROTEIN - SERUM 7.2 g/dL (6.4-8.2); T4 THYROXIN - FREE 1.19 ng/dL (0.76-1.46); THYROID STIMULATING HORMONE 0.29 uIU/mL (0.36-3.74); URIC ACID 6.6 mg/dL (2.6-7.2)
[2019-10-20 05:48] LABS: CARBON DIOXIDE 29.4 mmol/L (21.0-32.0)
--- NOTE | 2019-10-20 06:06 | NUR ---
PT RESTED WELL DURING SHIFT. DENIED ANY DISCOMFORT. NEEDS MET; WILL CONTINUE TO MONITOR.
--- NOTE | 2019-10-20 07:15 | NUR ---
RECEIVED PT IN BED AAOX4 RESP UNLABORED SKIN W/D COLOR WNL NAD NOTED
[2019-10-20 08:00] VITALS: BP 116/78
[2019-10-20 10:45] LABS: BILIRUBIN NEGATIVE (NEGATIVE); GLUCOSE NEGATIVE (NEGATIVE); KETONE SMALL mg/dL (NEGATIVE); NITRITE NEGATIVE (NEGATIVE); UROBILINOGEN NORMAL (NORMAL)
[2019-10-20 11:00] VITALS: BP 117/74
--- NOTE | 2019-10-20 13:21 | NUR ---
Nutrition Follow-up: Pt reports decreased appetite 2/2 stress. Ate ~50% of breakfast this AM. Intermittent nausea. Last BM ~10 days ago. States that she struggles with chronic constipation and takes prebiotic, probiotic, etc at home. Diet: Cardiac PO intake: 63% avg x last 4 meals Wt: 121# (10/16) Labs noted: K+ 3.1 Meds noted: Dulcolax, HCTZ, Protonix -Encourage PO intake and honor food preferences within diet restrictions. -Monitor wt. -RD following.
[2019-10-20 15:00] VITALS: BP 120/79
[2019-10-20 20:00] VITALS: BP 105/71
--- NOTE | 2019-10-20 20:25 | NUR ---
BEDSIDE REPORT RECEIVED AND ROUNDS COMPLETED. PATIENT IS ALERT AND ORIENTED, RESTING COMFORTABLY IN BED. RESPIRATIONS ARE EVEN AND UNLABORED. NOS/S OF DISTRESS. NO C/O PAIN. CALLLIGHT WITHIN REACH. WILL CPOC.
[2019-10-20 23:39] VITALS: BP 110/74
--- NOTE | 2019-10-20 23:40 | NUR ---
PATIENT CALLED SENIOR UNIX ADMINISTRATOR LIGHT C/O THE NEED TO HAVE A BM. PATIENT REQUESTED THAT HER BP WAS TAKEN. PATIENT STATED, "I AM NOT FEELING WELL." PATIENT THAN BEGAN VOMITTING. PATIENT GIVEN ZOFRAN. VITALS 110/74 HR 64 O2 98. T 97.7 CALL LIGHT WITHIN REACH. WILL CPOC.
[2019-10-21] VITALS (43 sets, daily range): BP systolic 91–158; BP diastolic 49–94
[2019-10-21 05:03] LABS: BASOPHILS 0.1 % (0-2); HEMATOCRIT 43.2 % (36.0-48.0); HEMOGLOBIN 14.4 g/dL (12-16); IMMATURE GRANULOCYTES 0.2 % (0-5); LYMPHOCYTES 22.9 % (15-50); MCH 31.5 pg (26.0-34.0); MCHC 33.3 g/dL (31.0-37.0); MEAN PLATELET VOLUME 9.3 fL (7.4-10.4); MONOCYTES 6.4 % (2-11); NEUTROPHILS 69.4 % (40-80); PLATELET COUNT 359 10x3/uL (130-400); RBC 4.57 10x6/uL (4.00-5.40); RDW 12.7 % (11.5-14.5); WBC 9.9 10x3/uL (4.8-10.8)
[2019-10-21 05:12] LABS: MCV 94.5 fL (80.0-100.0)
[2019-10-21 05:19] LABS: ANION GAP 8.5 mmol/L (8-16); CALCIUM 9.4 mg/dL (8.5-10.1); CARBON DIOXIDE 29.5 mmol/L (21.0-32.0); CREATININE - SERUM 1.3 mg/dL (0.6-1.3); MAGNESIUM - SERUM 2.1 mg/dL (1.8-2.4)
--- NOTE | 2019-10-21 11:46 | NUR ---
PT PREOP'D AND TAKEN VIA BED TO SX.
--- NOTE | 2019-10-21 15:04 | NUR ---
1450 PT RECIEVED IN THE CVICU VIA BED FROM THE OR.. ANESTHESIA AND TECHS WITH PATIENT.. PATIENT IS AWAKE AND ALERT WITH LEFT NECK DRESSING CDI.. NICHELLE DRAIN EXTENEDING FROM UNDER DRESSING.. CVL WITH PLASMALYTE INFUSING AT 100CC/HR CHANGED TO 30CC PER ORDER.. THERE IS NTG HANGING IF NEEDED FOR BP AND HECTOR SYNEPHRINE.. SR ON MONITOR.. .. A LINE RIGHT RADIAL TO MONITOR WAVE FORM WNL.. SEE FLOW SHEET FOR VS RESULTS.. 1510 AT BEDSIDE .. UPDATE IS GIVEN AND PT IS CONVERSING.. 1515 COMMUNITY RELATIONS DIRECTOR IN AND EEG WIRES REMOVED.. DR MIX IN TO SEE PATIENT AND TALKED TO PATIENT AND FAMILY,,
--- NOTE | 2019-10-21 15:36 | NUR ---
1530 RIGHT SC CVL DCd PER VO DR MIX .. IV FLUID P;LASMALYTE IS MOVED TO PERIFERAL IV LEFT FOREARM.. PT REMAINS AWAKE AND CONVERSING
--- NOTE | 2019-10-21 16:02 | NUR ---
1600 PT BP IS ELEVATED NTG ON AND MAXED DOSE REACHED CLEVIPREX INITIATED AT 1MG/HR INCREASED TO 1.5 MG/HR NTG CONTINUES AT 30 MG/MIN
--- NOTE | 2019-10-21 16:30 | NUR ---
1630 CLEVIPREX HAS BEEN TITRATED TO EFFECT..EYES CLOSED WITHOUT C/O AT THIS TIME
--- NOTE | 2019-10-21 17:18 | NUR ---
1700 PT RESTING WITH EYES CLOSED IS NOW GONE FROM BEDSIDE..
--- NOTE | 2019-10-21 19:00 | NUR ---
SHIFT ASSESSMENT COMPLTED. PT CARE ASSUMED, MONITORS ON AND WORKING, VSS. PT AWAKE AND ALERT, CALL LIGHT WITHIN REACH, ICE PACK TO LEFT NECK, GOULD CATH DRAINING YELLOW URINE, SEE FLOW SHEET FOR FURTHER DETAILS WILL CONTINUE TO OBSERVE.
--- NOTE | 2019-10-21 23:00 | NUR ---
PT LYING IN BED RESTING, MONITORS ON AND WORKING, VSS. CLEVIPREX INFUSING. CALL LIGHT WITHIN REACH, PT AWAKE AND ALERT, SEE FLOW SHEET FOR FURTHER DETIALS, WILL CONTINUE TO OBSERVE.
[2019-10-22] VITALS (44 sets, daily range): BP systolic 109–163; BP diastolic 59–98
--- NOTE | 2019-10-22 01:00 | NUR ---
PT TURNED AND REPOSITIONED FOR COMFORT. MONITORS ON AND WORKING, VSS. CALL LIGHT WITHIN REACH, FRESH WATER AT BEDSIDE. WILL CONTINUE TO OBSERVE.
--- NOTE | 2019-10-22 03:00 | NUR ---
ICE PACK TO LEFT NECK, MONITORS ON AND WORKING, VSS. CALL LIGHT WITHIN REACH, WILL CONTINUE TO OBSERVE.
--- NOTE | 2019-10-22 05:00 | NUR ---
PT AT BEDSIDE, MONITORS ON AND WORKING, VSS. CALL LIGHT WITHIN REACH, WILL CONTINUE TO OBSERVE.
[2019-10-22 06:59] LABS: BASOPHILS 0.2 % (0-2); EOSINOPHILS 1.8 % (0-7); HEMATOCRIT 36.3 % (36.0-48.0); HEMOGLOBIN 12.1 g/dL (12-16); IMMATURE GRANULOCYTES 0.4 % (0-5); LYMPHOCYTES 20.7 % (15-50); MCH 31.6 pg (26.0-34.0); MCHC 33.3 g/dL (31.0-37.0); MCV 94.8 fL (80.0-100.0); MEAN PLATELET VOLUME 8.8 fL (7.4-10.4); MONOCYTES 10.3 % (2-11); NEUTROPHILS 66.6 % (40-80); RBC 3.83 10x6/uL (4.00-5.40); RDW 12.6 % (11.5-14.5); WBC 8.5 10x3/uL (4.8-10.8)
[2019-10-22 07:05] LABS: PLATELET COUNT 267 10x3/uL (130-400)
[2019-10-22 07:14] LABS: CALCIUM 8.1 mg/dL (8.5-10.1); CARBON DIOXIDE 24.5 mmol/L (21.0-32.0); CHLORIDE - SERUM 102 mmol/L (98-107); GLUCOSE 109 mg/dL (74-106); MAGNESIUM - SERUM 1.8 mg/dL (1.8-2.4); SODIUM 134 mmol/L (136-145)
[2019-10-22 07:30] LABS: CALC OSMOLALITY 269 mosm/kg (275-300); CREATININE - SERUM 0.8 mg/dL (0.6-1.3); POTASSIUM - SERUM 3.1 mmol/L (3.5-5.1); UREA NITROGEN 14 mg/dL (7-18); eGFR NON AFRICAN AMERICAN 79 mL/min (90-120)
--- NOTE | 2019-10-22 07:30 | NUR ---
SHIFT ASSESSMENT COMPLETED. C/O PAIN TO LEFT NECK INCISION 12/26. INSTRUCTED NEXT PAIN MEDICATION AVAILABLE AT 0815.
--- NOTE | 2019-10-22 08:15 | NUR ---
ULTRAM 50MG GIVEN BY MOUTH FOR PAIN. CLEVIPREX D/C'D. BP 119/69 BY ARTERIAL PRESSURE, 118/74 BY NIBP. RIGHT RADIAL ARTERIAL LINE D/C'D. PRESSURE HELD AND STERILE 4X4 AND TEGADERM DRESSING APPLIED. GOULD CATHETER REMOVED. 200 MLS CLEAR URINE NOTED. NICHELLE DRAIN TO LEFT NECK D/C'D. 10 MLS SEROUS DRAINAGE. ASSISTED UP TO BEDSIDE CHAIR. NO NEURO DEFICITS NOTED.
--- NOTE | 2019-10-22 11:13 | OP ---
PATIENT NAME: SUPA MERINO MEDICAL RECORD: [id number] :63 LOCATION:[facility].CV08 ADMISSION DATE:10/16/19 SURGEON: WILLIE MIX MD DATE OF OPERATION: 10/21/2019 SURGEON: Willie Mix MD PROCEDURE PERFORMED: Left carotid endarterectomy. PREOPERATIVE DIAGNOSES: Acute coronary syndrome, coronary artery disease, severe bilateral carotid stenosis and vertebral stenosis with syncope. POSTOPERATIVE DIAGNOSIS: Acute coronary syndrome, coronary artery disease, severe bilateral carotid stenosis and vertebral stenosis with syncope. ANESTHESIA: General endotracheal anesthesia. ESTIMATED BLOOD LOSS: 10 cc. COMPLICATIONS: None. SPECIMENS: Plaque. CONDITION: Stable. DISPOSITION: CV-ICU. OPERATIVE FINDINGS: 1. Severely calcified and stenotic plaque, feathered well distally, the plaque was tacked, CorMatrix patch was used for closure in a relatively small internal carotid consistent with the patient's size. 2. Neurologically intact to CV-ICU. OPERATIVE INDICATION: Severe multivessel coronary artery disease with acute coronary syndrome, found to have multivessel coronary artery disease with a history previously of peripheral vascular disease followed by Dr. Barajas. DESCRIPTION OF PROCEDURE: The patient was brought to the operating suite. General anesthesia was obtained, the patient was prepped and draped. An oblique incision was made in the left neck, incision was taken down to the common carotid, which was dissected out and encircled with a vessel loop. Two large facial venous branch were divided between ligatures and suture ligatures. External carotid and thyroid branch were dissected out and encircled with vessel loops. Internal carotid was dissected out distally to a region of normal vessel. Heparin was given. After the heparin had circulated, backbleeding was controlled on the internal carotid with a bulldog clamp and inflow with a vascular clamp and backbleeding of the external carotid and thyroid branch with vessel loops. EEG and cerebral oximetry were monitored for 2 minutes without change prior to beginning the arteriotomy. Arteriotomy in the common carotid artery was taken out through the region of dense plaque and into a relatively normal region of the internal carotid. The plaque was divided in the common carotid artery with an eversion endarterectomy of the external carotid and the plaque feathered well distally. Thorough irrigation was undertaken and all bits of loose debris were removed. Interrupted 7-0 sutures were used to tack the distal plaque. The patch was fashioned to the appropriate size and sutured OPERATIVE REPORT [id number] ANGELIQUESUPA Bardales along the edge of the arteriotomy. Prior to completing the anastomosis, backbleeding was allowed from all 3 major vessels and then the endarterectomy bed was again thoroughly flushed with heparinized saline. Anastomosis completed, flow restored, first to the external carotid and then to the internal carotid. Hemostasis was assured. Several sutures were used for hemostasis. A drain was placed through a separate stab wound. Protamine was given. Antibiotic irrigation ensued. Neck was then closed in 3 layers including Dermabond on the skin. The patient was neurologically intact to CV ICU. TRANSINT:[id number] Voice Confirmation ID: [id number] DOCUMENT ID: [id number] WILLIE MIX MD at 1113 CC: PATRICIA LEE M.D. and JARRET RICCI DO [id number] DICTATION DATE: 10/21/19 1507 TUNNEL ELASTIC OPERATOR ZIGZAG: 10/21/19 2338 ADM IN [place] [address] [place] [address]
--- NOTE | 2019-10-22 12:20 | NUR ---
C/O LEFT NECK PAIN 10/26. MEDICATED WITH ULTRAM 50MG.
--- NOTE | 2019-10-22 12:29 | NUR ---
Nutrition Follow-up: POD 1 L carotid endarterectomy. Ate <50% of breakfast this AM. C/o sore throat. Denies N/V. States last BM was 10-11 days ago; takes Exlax @ home. +flatus. CABG this week. Diet: Regular Wt: 114# (10/20) Labs noted: Na 134, K+ 3.1, Glu 109, Ca 8.1 Meds noted: KDur, Protonix, Zofran, Dulcolax (PRN) -Encourage PO intake and honor food preferences. -Offer nutrition supplements. -Monitor wt. -RD following.
--- NOTE | 2019-10-22 13:30 | NUR ---
ADDENDUM: ZINACEF COMPLETED. PLASMALYTE DISCONTINUED. IV SITE SALINE LOCKED.
--- NOTE | 2019-10-22 13:30 | NUR ---
ASSISTED TO BATHROOM. VOIDED WITHOUT C/O DIFFICULTY. ASSISTED BACK TO BED. VOICES CONTINUED PAIN. ICE PACK TO LEFT NECK. LEFT FORARM PIV SITE OOZING BLOOD. TEGADERM DRESSING REPLACED AND NIBP CUFF MOVED TO RIGHT ARM. COMFORTABLE IN BED WITH HOB AT 30 DEGREES, CALL LIGHT IN REACH.
--- NOTE | 2019-10-22 18:00 | NUR ---
TRAMADOL 50MG GIVEN PO FOR C/O 8/10 LEFT NECK INCISIONAL PAIN. ONDANSETRON 4MG IV FOR C/O NAUSEA FOLLOWING SUPPER. RESTING NOW.
--- NOTE | 2019-10-22 18:30 | NUR ---
PAIN LEVEL DOWN TO 6/10. NAUSEA RELIEVED.
--- NOTE | 2019-10-22 19:00 | NUR ---
REPORT TO ON-COMING RN.
--- NOTE | 2019-10-22 19:00 | NUR ---
SHIFT ASSESSMENT COMPLETED. PT CARE ASSUMED, MONITORS ON AND WORKING, VSS, CALL LIGHT WITHIN REACH, PT AWAKE AND ALERT, SEE FLOW SHEET FOR FURTHER DETAILS. WILL CONTINUE TO OBSERVE.
--- NOTE | 2019-10-22 23:00 | NUR ---
PT LYING IN BED RESTING, MONITORS ON AND WORKING, VSS. CALL LIGHT WITHIN REACH, SEE FLOW SHEET FOR FURTHER DETAILS. WILL CONTINUE TO OBSERVE.
[2019-10-23] VITALS (53 sets, daily range): BP systolic 89–154; BP diastolic 54–102
--- NOTE | 2019-10-23 | NUR ---
STARTED NITRO AT 5MCG AT THIS TIME. MONITORS ON AND WORKING, CALL LIGHT WITHIN REACH, WILL CONTINUE TO OBSERVE.
--- NOTE | 2019-10-23 00:15 | NUR ---
NITRO TURNED OFF AT THIS TIME. MONITORS ON AND WORKING, VSS. CALL LIGHT WITHIN REACH. WILL CONTINUE TO OBSERVE.
--- NOTE | 2019-10-23 01:00 | NUR ---
PT LYING IN BED RESTING. MONITORS ON AND WORKING, VSS. CALL LIGHT WITHIN REACH, WILL CONTINUE TO OBSERVE.
--- NOTE | 2019-10-23 03:00 | NUR ---
NO CHANGES, MONITORS ON AND WORKING, VSS, CALL LIGHT WITHIN REACH, SBP REMAINS UNDER 140, NITRO OFF AT THIS TIME, WILL CONTINUE TO OBSERVE.
--- NOTE | 2019-10-23 05:00 | NUR ---
PT LYING IN BED RESTING. MONITORS ON AND WORKING, VSS, CALL LIGHT WITHIN REACH, ICE PACK ON LEFT NECK, TRAMADOL AND ZOFRAN GIVEN PER PTS REQUEST FOR PAIN AND N/V. WILL CONTINUE TO OBSERVE.
[2019-10-23 06:18] LABS: BASOPHILS 0.1 % (0-2); EOSINOPHILS 2.7 % (0-7); HEMOGLOBIN 11.9 g/dL (12-16); IMMATURE GRANULOCYTES 0.3 % (0-5); LYMPHOCYTES 21.4 % (15-50); MCH 31.4 pg (26.0-34.0); MCHC 33.1 g/dL (31.0-37.0); MEAN PLATELET VOLUME 9.4 fL (7.4-10.4); NEUTROPHILS 63.5 % (40-80); PLATELET COUNT 283 10x3/uL (130-400); RBC 3.79 10x6/uL (4.00-5.40); RDW 12.4 % (11.5-14.5); WBC 7.8 10x3/uL (4.8-10.8)
[2019-10-23 06:57] LABS: ANION GAP 10.4 mmol/L (8-16); CALCIUM 8.7 mg/dL (8.5-10.1); CARBON DIOXIDE 26.9 mmol/L (21.0-32.0); CREATININE - SERUM 0.9 mg/dL (0.6-1.3); MAGNESIUM - SERUM 1.9 mg/dL (1.8-2.4)
[2019-10-23 06:59] LABS: POTASSIUM - SERUM 4.3 mmol/L (3.5-5.1)
--- NOTE | 2019-10-23 07:55 | NUR ---
0700 PT RECIEVED ALERT AND ORIENTED VSS DENIES PAIN AND ALL NEEDS, LFA PIV SL, ON ROOM AIR, SEE SHIFT ASSESSMENT FOR DETAILS 0750 DR MIX IN UNIT ORDERS TO HOLD PO AM MEDS AND GIVE ONE DOSE 12.5 LOPRESSOR PO
--- NOTE | 2019-10-23 13:47 | NUR ---
PT TO OR WITH OR STAFF
--- NOTE | 2019-10-23 19:28 | NUR ---
PT RECIEVED TO ROOM FROM OR, SENIOR [employer] CONSULTANT STAFF PRESENT TO RECIEVE PT, PER DR CUENCA 4 OF MORPHINE ADMINISTERED X2 BY OR STAFF
--- NOTE | 2019-10-23 19:40 | NUR ---
DR MIX INFORMED OF ABG WITH ORDERS FOR 20MEQ KCK AND 1 AMP CA. REPEAT ABG IN 1 HR.
--- NOTE | 2019-10-23 20:50 | NUR ---
RESULTS OF ABG TO DR MIX WITH VITAL SIGNS AND DRIP STATUS. RECEIVED ORDER FOR LOPRESSOR 5MG IV ONE TIME. MEDICATION GIVEN.
[2019-10-24] VITALS (51 sets, daily range): BP systolic 86–133; BP diastolic 57–91
--- NOTE | 2019-10-24 00:25 | NUR ---
ABG AFTER BEING ON SPONTANEOUS ON VENT GIVEN TO DR MIX WITH DRIP AND VITAL SIGN UPDATE. RECEIVED ORDER TO EXTUBATE. PT EXTUBATED AT 0018, TOLERATED WILL. RECEIVED ICE CHIPS, TOLERATED WELL. PRN MORPHINE GIVEN FOR PAIN PER MAR. WILL CONTINUE TO OBSERVE.
[2019-10-24 05:16] LABS: BASOPHILS 0.1 % (0-2); EOSINOPHILS 0.1 % (0-7); HEMATOCRIT 33.9 % (36.0-48.0); HEMOGLOBIN 11.4 g/dL (12-16); IMMATURE GRANULOCYTES 0.3 % (0-5); LYMPHOCYTES 3.8 % (15-50); MCH 30.2 pg (26.0-34.0); MCHC 33.6 g/dL (31.0-37.0); MONOCYTES 8.6 % (2-11); NEUTROPHILS 87.1 % (40-80); RBC 3.78 10x6/uL (4.00-5.40); RDW 15.2 % (11.5-14.5)
[2019-10-24 05:17] LABS: MCV 89.7 fL (80.0-100.0); PLATELET COUNT 176 10x3/uL (130-400); WBC 18.4 10x3/uL (4.8-10.8)
[2019-10-24 05:47] LABS: ALBUMIN 2.4 g/dL (3.4-5.0); ALKALINE PHOSPHATASE 56 U/L (30-120); ALT (SGPT) 14 U/L (10-68); BILIRUBIN - TOTAL 0.29 mg/dL (0.2-1.3); CALCIUM 7.4 mg/dL (8.5-10.1); CARBON DIOXIDE 22.9 mmol/L (21.0-32.0); CHLORIDE - SERUM 102 mmol/L (98-107); POTASSIUM - SERUM 4.7 mmol/L (3.5-5.1); PROTEIN - SERUM 4.9 g/dL (6.4-8.2); SODIUM 136 mmol/L (136-145)
[2019-10-24 05:54] LABS: GLUCOSE 123 mg/dL (74-106)
[2019-10-24 05:55] LABS: CALC OSMOLALITY 271 mosm/kg (275-300); CREATININE - SERUM 0.6 mg/dL (0.6-1.3); UREA NITROGEN 9 mg/dL (7-18); eGFR NON AFRICAN AMERICAN > 90 mL/min (90-120)
--- NOTE | 2019-10-24 08:13 | OP ---
PATIENT NAME: SUPA MERINO MEDICAL RECORD: [id number] :63 LOCATION:.[facility] D.CV08 ADMISSION DATE:10/16/19 SURGEON: WILLIE MIX MD DATE OF OPERATION: 10/23/2019 SURGEON: Willie Mix MD PROCEDURE PERFORMED: Coronary artery bypass graft times 3 (left internal mammary artery to LAD, reverse saphenous vein graft from aorta to first diagonal and aorta to posterior descending artery). PREOPERATIVE DIAGNOSES: Coronary artery disease, carotid stenosis, vertebral stenosis, previous stents. POSTOPERATIVE DIAGNOSES: Coronary artery disease, carotid stenosis, vertebral stenosis, previous stents. ANESTHESIA: General endotracheal anesthesia. ESTIMATED BLOOD LOSS: Total cardiopulmonary bypass with Cell Saver re-transfusion and 2 packed red blood cells. COMPLICATIONS: None. SPECIMENS: Internal mammary lymph node. CONDITION: Stable. DISPOSITION: ICU. OPERATIVE FINDINGS: 1. Small greater saphenous vein just below the knee and just above the knee on both sides, not amenable to endoscopic harvest. Bridging incision was performed and on the right leg, the vein went about 4-5 inches before it became a dual system. The smaller portion was used for the diagonal graft. On the left leg, a full segment was available with bridging incisions from the thigh. 2. Small, but excellent flow and a 1.5 to 2 mm left internal mammary artery. The LAD was 1.5 mm and was anterior epicardial to the mid distal vessel. 3. First diagonal 1.25 mm. 4. The only lateral vessel was a small obtuse marginal, less than 1 mm, not grafted. 5. Right coronary artery calcified beyond the stent down to the bifurcation. The PDA was 1.25 mm. The more posterolateral branches of the right were smaller and not grafted. 6. 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 OPERATIVE INDICATION: Coronary artery disease. PROCEDURE NOTE IN DETAIL: The patient was brought to the operating suite. General anesthesia was obtained. The patient was prepped and draped. Attempted endoscopic harvest was performed, but the vein was small. Bridging incisions were made on both thighs. Vein was removed after clipping the side branches and the saphenous vein. The vein was cannulated. Side branches were tied or thin sites were oversewn. The leg was later closed in 2 layers. OPERATIVE REPORT [id number] SUPA MERINO Median sternotomy incision was made. Subcutaneous tissue was divided with electrocautery. The sternum was divided with a saw. Left hemisternum was elevated. Left pleural cavity was entered. Left internal mammary artery and veins were taken as a pedicle graft. Sternal retractor was placed. Pericardium was opened. Heparin was given. Aorta was cannulated. Dual stage venous cannula was inserted. Activated clotting time was appropriately elevated. Internal mammary was clipped distally and made ready for anastomosis. The patient was placed in cardiopulmonary bypass. Sites for distal anastomosis were selected. Cardioplegia was given through the cannula in the anterior ascending aorta. Cross clamp was placed. The patient's temperature drifted downward to 34 degrees. Antegrade cardioplegia was given and repeated at 15-minute intervals including down the completed vein grafts. Distal anastomosis was performed in a standard technique except for 8.0 was used on the diagonal and internal mammary anastomoses, proximal anastomosis 7.0 on the small vein graft to the diagonal, 6.0 on the right. Flow was restored. Grafts were deaired. Proximal and distal anastomotic sites inspected for bleeding. The patient resumed spontaneous rhythm, fully rewarmed, weaned from cardiopulmonary bypass, and was stable. The patient was decannulated. Cannula sites were oversewn with nonpledgeted sutures. Thorough irrigation was undertaken. Hemostasis was ensured. Graft lay appropriately. Protamine was given. Pericardial fat was loosely reapproximated after placing a ventricular pacing wire and drains into both pleural cavities and the mediastinum. Internal mammary harvest site inspected for bleeding. Left chest was evacuated and irrigated. The sternum was closed with wires. Fascia was closed. Subcutaneous tissue was closed. Skin was closed. Dermabond was placed. Needle and sponge counts were reported as correct. The patient was taken to ICU in stable condition. NTS:[id number] Voice Confirmation ID: [id number] DOCUMENT ID: [id number] WILLIE MIX MD at 0813 CC: PATRICIA LEE M.D. and JARRET RICCI DO [id number] DICTATION DATE: 10/23/191816 DIRECTOR GLOBAL: 10/24/19 0110 ADM IN [id number] [place] [address]
--- NOTE | 2019-10-24 08:33 | NUR ---
0730-PT UP IN CHAIR AND AWAKENED-REQUESTING PAIN MEDICATION 10/26-SEE EMAR 0800-UP IN CHAIR-DR MIX AT BEDSIDE ORDERS GIVEN-Lisa CALIX D/C'D PER PROTOCOL-CVP D/C'D-SR AT THIS TIME -
--- NOTE | 2019-10-24 11:21 | NUR ---
Nutrition Follow-up: POD 1 CABG; POD 3 L carotid endarterectomy. Diet: Clear Liquid -> Regular Wt: 120.1# (10/23) Labs noted: Glu 123, Ca 7.4, Alb 2.4 Meds noted: Protonix, Zofran -Rec continue to ADAT as medically feasible. -Monitor wt. -RD following.
--- NOTE | 2019-10-24 13:01 | NUR ---
PT CALLED NURSE-STATED FEELS LIKE THROAT CLOSING-NOTED GOOD AUDIBLE A/E WITH STETHESCOPE-ENCOURAGED TO SIT UP IN CHAIR
--- NOTE | 2019-10-24 13:12 | NUR ---
0930-PHYSICAL THERAPY AT BEDSIDE -ASSISTED PT TO BED AND TOLERATED WELL
--- NOTE | 2019-10-24 14:46 | NUR ---
DR MIX AT BEDSIDE-PT PLACED IN SUPINE DIRECTED-C/O INCISIONAL PAIN-MORPHINE 2MG IVP GIVEN DIRECTED FOR PREMED-MEDIASTINAL CHEST TUBES REMOVED BY DR MIX-TOLERATED MODERATELY -C/O SEVERE NAUSEA-ZOFRAN 4MG IVP GIVEN-REMAINS IN BED WITH HOB ELEVATED 60DEGREES-PACER WIRE X1 SECURED-COLLIN DRAIN IN PLACE AND COMPRESSED
--- NOTE | 2019-10-24 17:38 | NUR ---
PT CALLED NURSE -STATES L ARM ELBOW -ACHES TO BONE-RADIAL PULSE STRONG AND NO DISCOLOURATION-NIBP R ARM 99/59-L ARM 117/76-DR MIX NOTIFIED
--- NOTE | 2019-10-24 21:14 | NUR ---
PT STILL RATES PAIN "8/10" NUMERIC SCALE IN "CHEST, WHEN ITAKE A DEEP BREATH IT PULLS". I EXPLAINED THAT THIS IS A NORMAL FEELING AFTER HAVING OPEN HEART SURGERY. HER VS ARE STABLE. SHE ASK IF I CAN PUT HER SCD'S ON. PUT ON BILAT AND TURNED MACHINE ON. JARRET BOLTON ARE ON BILAT. SHE STILL C/O OF LEFT ELBOW PAIN THAT IS NOT NEW. PROVIDED HER WITH WARM COMPRESS FOR COMFORT. SHE ALSO USES IS AT THIS TIME AND PULLS IN 700. SHE VERABLIZES"I HATE USING THIS THING BECASUE IT MAKES ME HURT". I EDUCATE HER OF WHY WE WANT HER TO USE IT AND SHE VOICES"YEA I KNOW, BUT I STILL DONT LIKE IT". PROVIDED HER WITH CUP OF ICE. BED IS LOW,SIDE RAISLX2,CALL LIGHT WITHIN REACH. WILL CONITNUE TO MONITOR
--- NOTE | 2019-10-24 23:20 | NUR ---
PT IS RESTING IN BED WITH EYES CLOSED. WAKES EASILY. VSS. RE-ASSESSMENT DONE. NO NEEDS OR C/O VOICED AT THIS TIME. BED IS LEFT LOW,SIDE RAISLX2,CALL LIGHT WITHIN REACH. WILL CONINTUE TO MONITOR
[2019-10-25] VITALS (46 sets, daily range): BP systolic 91–132; BP diastolic 51–87
--- NOTE | 2019-10-25 02:33 | NUR ---
PT USED CALL LIGHT AND ASKED"CAN I HAVE SOMETHING FOR PAIN". VOCIES PAIN "9/10" NUMERIC SCALE IN CHEST"TIGHT". PAIN IS NOT NEW. WILL SCAN AND ADMINISTER ORDERED PRN. SHE VOICES NO OTHER NEEDS AT THIS TIME. BED IS LOW,SIDE RAISLX2,CALL LIGHT WITHIN REACH. WILL CONINTUE TO MONITOR
--- NOTE | 2019-10-25 03:15 | NUR ---
PT IS RESTING WITH EYES CLOSED. VSS. RE-ASSESSMENT PERFORMED. PAIN HAS GONE FROM 9/10 TO 8/10 NUMERIC SCALE. PT VOICES"IM GOING TO TRY AND REST NOW". BED IS LOW,SIDE RAISLX2,CALL LIGHT WITHIN REACH. WILL CONITNUE TO MONITOR
[2019-10-25 04:00] LABS: BASOPHILS 0.1 % (0-2); EOSINOPHILS 0.6 % (0-7); HEMATOCRIT 33.3 % (36.0-48.0); HEMOGLOBIN 11.2 g/dL (12-16); IMMATURE GRANULOCYTES 0.3 % (0-5); MCH 30.9 pg (26.0-34.0); MCHC 33.6 g/dL (31.0-37.0); MEAN PLATELET VOLUME 8.9 fL (7.4-10.4); MONOCYTES 13.6 % (2-11); NEUTROPHILS 79.4 % (40-80); RBC 3.63 10x6/uL (4.00-5.40); RDW 15.2 % (11.5-14.5); WBC 18.6 10x3/uL (4.8-10.8)
[2019-10-25 04:02] LABS: MCV 91.7 fL (80.0-100.0); PLATELET COUNT 232 10x3/uL (130-400)
[2019-10-25 04:19] LABS: ALBUMIN 2.2 g/dL (3.4-5.0); ALKALINE PHOSPHATASE 78 U/L (30-120); BILIRUBIN - TOTAL 0.56 mg/dL (0.2-1.3); CALC OSMOLALITY 263 mosm/kg (275-300); CALCIUM 7.9 mg/dL (8.5-10.1); CARBON DIOXIDE 25.4 mmol/L (21.0-32.0); CHLORIDE - SERUM 100 mmol/L (98-107); CREATININE - SERUM 0.7 mg/dL (0.6-1.3); GLUCOSE 104 mg/dL (74-106); PROTEIN - SERUM 5.5 g/dL (6.4-8.2); SODIUM 133 mmol/L (136-145); UREA NITROGEN 8 mg/dL (7-18); eGFR NON AFRICAN AMERICAN > 90 mL/min (90-120)
[2019-10-25 04:21] LABS: ALT (SGPT) 176 U/L (10-68)
--- NOTE | 2019-10-25 07:00 | NUR ---
PT IS RESTING IN BED, VSS. MINMAL ASSIST TO SIT UP IN CHAIR FOR BREAKFAST. CHAIR WHEELS ARE LOCKED. CALL LIGHT WITHIN REACH. WILLCONTINUE TO MONITOR
--- NOTE | 2019-10-25 08:36 | NUR ---
1003-XPHCRROL-AJVDSJY 125-UP IN CHAIR--PT NOT AWARE-DR MIX NOTIFIED- 714-CORDARONE 150MG IVPB STARTED -PT ALERT AND REQUESTING MORPHINE FOR PAIN MANAGEMENT PREVENTION-NOTED LETHARGIC-HELD SAME 829-OXYCODONE 10MG PO GIVEN-PRODUCTIVE ZQHES-OCFEGBCTF-NYSW PILLOW
--- NOTE | 2019-10-25 19:10 | NUR ---
RECIVED REPORT. PT IS SITTING UP IN BED A&OX4, VSS. SHE WAS GIVEN BETAPACE JUST 20 MINUTES AGO AND WHILE GETTING REPORT SHE CONVERTED TO NSR 74. BP 119/81 ,MAP89. NO DISTRESS NOTED. WILL DO FULL ASSESSMENT AND DOC IN FLOWSHEET. RIGHT IJ SL CDI, SCD'S ARE ON BILAT, JARRET HOSE ON BILAT. COLLIN DRAIN TO MEDIASTAINAL COMPRESSED CDI. DRESSING TO MIDLINE CHEST IS CDI. PT IS OREINTED TO USE OF CALL LIGHT. BED IS LOW,SIDE RIALSX2,CALL LIGHT WIHTNKI REACH. WILL CONINTUE TO MONITOR
--- NOTE | 2019-10-25 19:45 | NUR ---
PT WENT FROM NSR 84 TO A.FLUTTER 121. PT IS AWAKE, NO S/S OF DISTRESS. IS HERE AT THIS TIME AND GAVE V.O TO GIVE 2.5MG LOPRESSOR IV NOW. V.O READ BACK CORRECT.
--- NOTE | 2019-10-25 20:43 | NUR ---
PT IS RESTING WITH EYES CLOSED, WAKES EAISLY. NO S/S OF DISTRESS. NOTIFIED OF HR 126 A.FLUTTER AND BP 97/63. T.O TO KEEP SBP ABOVE 100 WITH PHENYLEPHRINE TO TITRATE, GIVE ANOTHER 2.5MG LOPRESSOR IV NOW, AND GIVE 2G MAGNESIUM SULFATE IV OVER 5 HOURS IV. T.O READ BACK CORRECT.
--- NOTE | 2019-10-25 21:00 | NUR ---
PHENLEPHRINE STARTED AT 0.1MCG TO KEEP SBP ABOVE 100, LOPRESSOR 2.5MG GIVEN IV AND MAG 2G STARTED. PT IS STILL RESTING CALMLY WITH NO S/S OF DISTRESS.
--- NOTE | 2019-10-25 21:14 | NUR ---
PT CONVERTED BACK TO NSR, HR 73. BP IS 105/72 MAP 81. WILL TURN HECTOR OFF SINCE NSR AND BP MAINTANING. PT IS RESTING IN BED WITH EYES CLOSED. WAKES EASILY. VOICES NO C/O AT THIS TIME. NO NEEDS VOICED. BED IS LOW,SIDE RAILSX2,CALL LIGHT WITHIN REACH. WILL CONITNUE TO MONITOR
--- NOTE | 2019-10-25 22:49 | NUR ---
PT IS RESTING IN BED WITH EYES CLOSED. VSS. RE-ASSESSMENT DONE AND WILL DOC IN FLOW SHEET. NO NEEDS OR C/O VOICED. REPOSITIONED FOR COMFORT. BED IS LOW,SIDE RAISLX2,CALL LIGHT WITHIN REACH. WILL CONTINUE TO MONITOR
[2019-10-26] VITALS (24 sets, daily range): BP systolic 101–159; BP diastolic 59–101
--- NOTE | 2019-10-26 03:13 | NUR ---
PT IS RESTING WITH EYES CLOSED. WAKES EASILY. VSS. HR IS 76 NSR. BP IS 106/63 SHE VOICES NO NEEDS OR C/O AT THIS TIME. RE-ASSESSMENT DONE AND WILL DOC IN FLOWSHEET. BED IS LOW,SIDE RAISLX2,CALL LIGHT WITHIN REACH. WILL CONTINUE TO MONITOR
[2019-10-26 06:30] LABS: HEMATOCRIT 31.4 % (36.0-48.0); HEMOGLOBIN 10.2 g/dL (12-16); MCH 29.8 pg (26.0-34.0); MCHC 32.5 g/dL (31.0-37.0); MCV 91.8 fL (80.0-100.0); MEAN PLATELET VOLUME 9.2 fL (7.4-10.4); RBC 3.42 10x6/uL (4.00-5.40); RDW 15.1 % (11.5-14.5); WBC 13.7 10x3/uL (4.8-10.8)
--- NOTE | 2019-10-26 06:51 | NUR ---
PT IS RESTING IN BED WITH EYES CLOSED. WAKES EAISLY. VOICES"I HAVE BEEN SLEEPING SO GOOD". NO C/O OR NEEDS VOICED. VSS. BED IS LOW,SIDE RIASLX2,CALL LIGHT WITHIN REACH. WILL CONTINUE TO MONITOR
[2019-10-26 07:06] LABS: ALBUMIN 1.9 g/dL (3.4-5.0); ALKALINE PHOSPHATASE 93 U/L (30-120); ALT (SGPT) 149 U/L (10-68); BILIRUBIN - TOTAL 0.33 mg/dL (0.2-1.3); CALC OSMOLALITY 260 mosm/kg (275-300); CARBON DIOXIDE 30.1 mmol/L (21.0-32.0); CHLORIDE - SERUM 97 mmol/L (98-107); CREATININE - SERUM 0.7 mg/dL (0.6-1.3); GLUCOSE 84 mg/dL (74-106); PROTEIN - SERUM 5.5 g/dL (6.4-8.2); SODIUM 131 mmol/L (136-145); UREA NITROGEN 9 mg/dL (7-18); eGFR NON AFRICAN AMERICAN > 90 mL/min (90-120)
[2019-10-26 07:07] LABS: MAGNESIUM - SERUM 2.3 mg/dL (1.8-2.4); POTASSIUM - SERUM 4.2 mmol/L (3.5-5.1)
--- NOTE | 2019-10-26 14:32 | NUR ---
0715-RECIEVED PER FLOW SHEET- 0830-PT AWAKE AND ALERT-REFUSED BREAKFEST TRAY-C/O NAUSEA-AND PAIN ZOFRAN 4MG IVP GIVEN AND OXYCODONE 10 PO GIVEN
--- NOTE | 2019-10-26 14:43 | NUR ---
0900-DR MIX AT BEDSIDE AND SPOKE WITH PT REGARDING CURRENT TREATMENT AND PLAN OF CARE-PT APPEARS ANXIOUS-COLLIN DRAIN REMOVED BY DR MIX-PT FACIAL GRIMACED--REPEATING IT CRESPO-PACER WIRE REMAINS ATTACHED TO PACER N STAND BY DRG DONE-GOULD CATH D/C'D ORDERED BY DR MIX-TOLERATED WELL BY PT 1000-PHYSICAL THERAPY AMBULATED PT WITH WALKER -TOLERATED WELL-ASSISTED TO BEDSIDE CHAIR 1130-PT CALLED STAFF -RN ANSWERED CALL LIGHT-PT REQUESTED [place]-SAME BROUGHT TO PT -PT CHANGED REQUEST TO [place]-SAME BROUGHT TO PT-PT PERCIEVED AGGRAVATION FROM NURSE-NO FURTHER REQUEST 1145-CALL RECIEVED FROM ELECTROPLATING WORKER TO NURSES DESK -STATED PT CALLED FROMCV8 TO COMPLAIN ABOUT TREATMENT-STRESSED FOR CLICKER OPERATOR TO FOLLOW HOSPITAL PROTOCOL AND MAKE FACEPIECE LINE SUPERVISOR AWARE-CALL SHOULD BE TRANSFERED TO NURSE FACEPIECE LINE SUPERVISOR FOR APPROPRIATE PATH 1200- AT BEDSIDE -PT REMAINS UP IN CHAIR -ZOFRAN 4MG IVP GIVEN FOR CONTINUED NAUSEA-OXYCODONE 10 FOR PAIN-MEAL TRAY SETUP AND WITHIN REACH-PT REFUSED AT THIS TIME
[2019-10-27] VITALS (22 sets, daily range): BP systolic 111–163; BP diastolic 78–100
[2019-10-27 04:55] LABS: HEMOGLOBIN 10.6 g/dL (12-16); MCH 30.5 pg (26.0-34.0); MCHC 33.1 g/dL (31.0-37.0); RBC 3.48 10x6/uL (4.00-5.40); WBC 12.7 10x3/uL (4.8-10.8)
[2019-10-27 05:04] LABS: ALBUMIN 1.9 g/dL (3.4-5.0); ALKALINE PHOSPHATASE 106 U/L (30-120); BILIRUBIN - TOTAL 0.49 mg/dL (0.2-1.3); CALCIUM 8.5 mg/dL (8.5-10.1); CARBON DIOXIDE 27.7 mmol/L (21.0-32.0); CHLORIDE - SERUM 99 mmol/L (98-107); CREATININE - SERUM 0.7 mg/dL (0.6-1.3); GLUCOSE 76 mg/dL (74-106); POTASSIUM - SERUM 4.4 mmol/L (3.5-5.1); PROTEIN - SERUM 5.6 g/dL (6.4-8.2); SODIUM 133 mmol/L (136-145); eGFR NON AFRICAN AMERICAN > 90 mL/min (90-120)
[2019-10-27 05:08] LABS: ALT (SGPT) 101 U/L (10-68); CALC OSMOLALITY 265 mosm/kg (275-300); UREA NITROGEN 14 mg/dL (7-18)
--- NOTE | 2019-10-27 09:15 | NUR ---
0700 PT RECIEVED ALERT AND ORIENTED VSS O2 2L DECREASED TO 1L R IJ VL DRESSING CDI MIDSTERNAL AND SUBSTERNAL DRESSINGS CDI WITH TPM WIRES ATTACHED AND TPM OFF, BLE HARVEST SITES JUSTINA, ASSISTED OOB TO CHAIR 0900 TOOK AM MEDS WITHOUT DIFFICULTY, REQUESTED CHEERIOS FOR BREAKFAST 0910 PT IN AND OUT OF [id number] AND BACK IN NSR 90S, DR ROBB NURSE COURTNI NOTIFIED
--- NOTE | 2019-10-27 09:51 | TEE ---
PATIENT:SUPA MERINO MEDICAL RECORD: [id number] LOCATION:[place] [address] AGE OF PATIENT: 53 ADMISSION DATE: 10/16/19 SEX: F REFERRING PHYSICIAN: INTERPRETING PHYSICIAN: VIRGIE JASSO MD TRANSESOPHAGEAL ECHOCARDIOGRAM Date: 10/23/19 GEO CHARGE Y INDICATIONS: CABG PREMEDICATIONS: PATIENT'S RESPONSE PROCEDURE DOPPLER MEASUREMENTS: LVIT LA PA RA LVOT RVOT Asc. Ao AV Gradient Peak AV Mean AV Area MV Gradient Peak MV Mean MV Area INTERPRETATION: Doppler: 2-D: COLOR FLOW DOPPLER NORMAL SALINE STUDY: MISCELLANOUS: DIAGNOSIS: PLAN: Cafeteria Operator:3 Dr. Vee Offset Proof Press Operator: Victorino CORRAL COMMENTS: RAMON PATIENT DATE OF SERVICE: 10/24/2019 PROCEDURE: Transesophageal intraoperative echocardiograph study. Preoperatively shows normal LV internal dimensions, wall motion and thickening and normal EF. Aortic valve is tricuspid with good valve excursion. Left atrium appears normal. Mitral valve appears normal. Trivial MR. Postoperatively, LV function is normal with good contractility in all segments and normal LV function. Aortic valve is tricuspid with good valve excursion. TRANSESOPHAGEAL ECHOCARDIOGRAM REPORT [id number] CARLOS MERINO Mitral valve appears normal. Trivial MR. TRANSINT:[id number] Voice Confirmation ID: [id number] DOCUMENT ID: [id number] at 0951 CC: [id number] DICTATION DATE: 10/24/19911 MANAGER PERSONNEL SELECTION: 10/25/19 0511 ADM IN [facility] [address] [place] [address]
--- NOTE | 2019-10-27 12:15 | NUR ---
Nutrition Follow-up: POD 4 CABG, POD 6 L carotid endarterectomy. Reports that she did not eat this AM. C/o N/V. Multiple BMs overnight. Provided written information on heart healthy eating per pt request. Declines nutrition supplements. Diet: Regular PO intake: 0-10% Wt: 121# (10/26) Labs noted: Na 133, Alb 1.9 Meds noted: Protonix, Senokot, Colace, KDur, Dulcolax, Zofran -Encourage PO intake and honor food preferences. -Monitor wt. -Will attempt to review/discuss provided information prior to d/c when pt feeling better. -RD following.
--- NOTE | 2019-10-27 13:34 | NUR ---
DR MIX IN UNIT ORDERS TO RESTART SOTALOL AND ELAVIL AND GIVE DOSE OF EACH NOW
--- NOTE | 2019-10-27 17:49 | NUR ---
1500 CHG BATH DONE, SUBSTERNAL DRESSING CHANGED 1700 ATE 50% DINNER TRAY 1730 ASSISTED TO BED
[2019-10-28] VITALS (17 sets, daily range): BP systolic 90–150; BP diastolic 61–103
[2019-10-28 04:30] LABS: HEMATOCRIT 33.1 % (36.0-48.0); HEMOGLOBIN 10.8 g/dL (12-16); MCH 29.9 pg (26.0-34.0); MCHC 32.6 g/dL (31.0-37.0); MCV 91.7 fL (80.0-100.0); MEAN PLATELET VOLUME 8.8 fL (7.4-10.4); RBC 3.61 10x6/uL (4.00-5.40); RDW 14.8 % (11.5-14.5); WBC 9.9 10x3/uL (4.8-10.8)
[2019-10-28 04:50] LABS: ALBUMIN 2.2 g/dL (3.4-5.0); BILIRUBIN - TOTAL 0.44 mg/dL (0.2-1.3); CALCIUM 8.5 mg/dL (8.5-10.1); CARBON DIOXIDE 29.8 mmol/L (21.0-32.0)
[2019-10-28 04:55] LABS: ANION GAP 10.4 mmol/L (8-16); CREATININE - SERUM 0.9 mg/dL (0.6-1.3); POTASSIUM - SERUM 5.2 mmol/L (3.5-5.1)
--- NOTE | 2019-10-28 10:20 | NUR ---
PHYSICAL THERAPY IN ROOM. PT IS INDEPENDENT FROM THEIR STANDPOINT. THEY WILL SIGN OFF, PER CHIP. WILL CONTINUE TO MONITOR
--- NOTE | 2019-10-28 11:20 | NUR ---
Nutrition Follow-up: POD 5 CABG; POD 7 L carotid endarterectomy. Appetite/PO intake improved. Denies N/V. Discussed heart healthy diet; questions answered. Diet: Regular Wt: 121# (10/27) Labs noted: Na 134, K+ 5.2, Alb 2.2 Meds noted: KDur, Protonix, Senokot, Colace -Encourage PO intake and honor food preferences. -Monitor wt. -RD following.
[2019-10-29] VITALS (15 sets, daily range): BP systolic 92–160; BP diastolic 68–112
[2019-10-29 06:27] LABS: HEMATOCRIT 35.6 % (36.0-48.0); HEMOGLOBIN 11.8 g/dL (12-16); MCH 30.1 pg (26.0-34.0); MCHC 33.1 g/dL (31.0-37.0); MCV 90.8 fL (80.0-100.0); MEAN PLATELET VOLUME 8.9 fL (7.4-10.4); RBC 3.92 10x6/uL (4.00-5.40); RDW 14.6 % (11.5-14.5); WBC 9.8 10x3/uL (4.8-10.8)
[2019-10-29 06:35] LABS: ALBUMIN 2.4 g/dL (3.4-5.0); ANION GAP 12.7 mmol/L (8-16); BILIRUBIN - TOTAL 0.39 mg/dL (0.2-1.3); CALCIUM 8.7 mg/dL (8.5-10.1); CARBON DIOXIDE 29.2 mmol/L (21.0-32.0); CREATININE - SERUM 0.9 mg/dL (0.6-1.3); PROTEIN - SERUM 6.4 g/dL (6.4-8.2)
[2019-10-29 06:37] LABS: POTASSIUM - SERUM 3.9 mmol/L (3.5-5.1)
--- NOTE | 2019-10-29 07:10 | NUR ---
MONITOR SHOWS ONSET OF UNCONTROLLED A-FIB BETWEEN 0646 AND 0710 WHILE PATIENT TOOK HERSELF OFF THE MONITOR TO USE TOILET. ASSESSED PATIENT. REPORTS SHE FELT HER HEART "POUNDING AND TOO FAST". BP CHECKED = 92/70.
--- NOTE | 2019-10-29 07:31 | NUR ---
PATIENT CONVERTED BACK TO SINUS RHYTHM WHILE RESTING IN RECLINER. STATES PAIN IS RELEIVED BY TYLENOL GIVEN BY 7P NURSE. BREAKFAST SERVED.
--- NOTE | 2019-10-29 09:30 | NUR ---
AM MEDS GIVEN. REMAINS IN SINUS RHYTHM. DR. MIX INFORMED OF EPISODE OF ATRIAL FIB. MESSAGE TO ELLEN FROM DR. MIX TO NOT PULL PACING WIRES AT THIS TIME.
--- NOTE | 2019-10-29 12:32 | NUR ---
Nutrition Follow-up: POD 6 CABG; POD 8 L carotid endarterectomy. Ate ~50% of breakfast this AM. Reports watery BMs x 2 this AM; refused Colace. No questions re: previous diet educ. Noted possible d/c if ok with CTS. Diet: Regular Wt: 120# (10/28) Labs noted: Alb 2.4 Meds noted: Protonix, KDur -Encourage PO intake and honor food preferences within diet restrictions. -Monitor wt. -RD following.
--- NOTE | 2019-10-29 16:15 | NUR ---
CENTRAL LINE DRESSING CHANGE TO RIGHT IJ TRIPLE LUMEN. SINUS RHYTHM ON MONITOR. NO FURTHER EPISODES OF UNCONTROLLED ATRIAL FIB.
[2019-10-30] VITALS (11 sets, daily range): BP systolic 91–161; BP diastolic 59–96
[2019-10-30 05:11] LABS: HEMATOCRIT 30.9 % (36.0-48.0); HEMOGLOBIN 10.4 g/dL (12-16); MCH 30.8 pg (26.0-34.0); MCHC 33.7 g/dL (31.0-37.0); MCV 91.4 fL (80.0-100.0); MEAN PLATELET VOLUME 8.5 fL (7.4-10.4); RBC 3.38 10x6/uL (4.00-5.40); RDW 14.9 % (11.5-14.5); WBC 8.1 10x3/uL (4.8-10.8)
[2019-10-30 05:32] LABS: ALBUMIN 2.3 g/dL (3.4-5.0); BILIRUBIN - TOTAL 0.22 mg/dL (0.2-1.3); CALCIUM 8.7 mg/dL (8.5-10.1); CARBON DIOXIDE 26.7 mmol/L (21.0-32.0); CREATININE - SERUM 0.9 mg/dL (0.6-1.3); PROTEIN - SERUM 5.8 g/dL (6.4-8.2)
[2019-10-30 05:42] LABS: ANION GAP 12.8 mmol/L (8-16); POTASSIUM - SERUM 4.5 mmol/L (3.5-5.1)
--- NOTE | 2019-10-30 14:00 | NUR ---
EPICARDIAL PACING WIRES REMOVED BY DR. MIX. RIGHT IJ CVL REMOVED USING STANDARD PROTOCOL. OCCLUSIVE DRESSING APPLIED. FLAT BEDREST FOR 30 MINS.
[2019-10-30] MEDS ORDERED: LOPRESSOR25 MG PO (14:19)
[2019-10-30] MEDS ORDERED: PERCOCET 5-3251 TAB PO (14:19)
[2019-10-30] MEDS ORDERED: BETAPACE 80 MG80 MG PO (14:19)
--- NOTE | 2019-10-30 15:30 | NUR ---
DISCHARGE TEACHING AND PAPERWORK GIVEN. PATIENT DEMONSTRATES UNDERSTANDING THROUGH TEACH-BACK. TRANSPORTED VIA WHEELCHAIR TO PRIVATE CAR WITH FAMILY MEMBER.
--- NOTE | 2019-10-31 11:49 | MORECARE ---
CASE MANAGEMENT DISCHARGE SUMMARY PATIENT: SUPA MERINO UNIT: [id number] ADM DATE: 10/16/19 AGE: 53 : 63 SEX: F [facility]: [facility] PHYSICIAN: REFERRING PHYSICIAN: NIC GUTIÉRREZ MD DATE OF SERVICE: 10/31/19 Discharge Plan Patient Name: SUPA MERINO Facility: [facility]:[place] : 1965 Planned Disposition: Home Anticipated Discharge Date: Discharge Date: 10/30/2019 Expected LOS: Initial Reviewer: [email or web address] Initial Review Date: 10/15/2019 Generated: 10/31/19 12:49 pm DCP- Discharge Planning Updated by [email or web address]: Catrachita Majano on 10/16/19 12:[address] Patient Name: SUPA MERINO Admission Status: ER Accout number: [id number] Admission Date: 10-15-2019 : 1965 Admission Diagnosis: Attending: NIC GUTIÉRREZ Current LOS: 1 Anticipated DC Date: Planned Disposition: Home Primary Insurance: UNINSURED DISCOUNT PLAN Discharge Planning Comments: CM met with patient to complete initial dc planning assessment. CM educated patient on the CM role and verbal consent given by patient to complete assessment. CM verified patient's address, phone number, and emergency contact phone numbers. Patient lives at home with her . Her daughter and grandchildren live with them. At discharge patient plans to return home and feels this is a safe discharge. CM discussed availability of home health, rehab services, and medical equipment. Patient unknown of needs at this time. Transportation provider at discharge will be her . CM will continue to follow and will assist as needed with dc plans/needs. Scrap Hooker: Catrachita Majano Last DP export: 10/16/19 12:39 p Patient Name: SUPA MERINO Page [id number] at 1149 All edits/amendments must be made on the electronic document DICTATION DATE: 10/31/19 1149 FLOOR PLAN ADJUSTER: HUGH 10/31/19 1149 RPT#: [id number] DC DATE:10/30/19 STATUS: DIS IN [facility] [address] [place], [place] [id number] END OF REPORT
== END 2019-10-30 15:30 | disposition home or self-care (01) | DRG 234 ==
LOC: D.ER 07:36 → D.M2 10:24 → OBSVTIME 18:29 → D.CVICU 10-16 19:30 → D.M2 10-16 19:30 → D.CVICU 10-21 14:57
PROVIDERS: Family Medicine; Internal Medicine Cardiovascular Disease; Thoracic Surgery (Cardiothoracic Vascular Surgery); ADMIT Emergency Medicine; ATTEND Emergency Medicine
PROC: B2151ZZ Fluoroscopy of Left Heart using Low Osmolar Contrast (ICD-10-PCS; 2019-10-16)
PROC: 4A023N7 Measurement of Cardiac Sampling and Pressure, Left Heart, Percutaneous Approach (ICD-10-PCS; 2019-10-16)
PROC: B2111ZZ Fluoroscopy of Multiple Coronary Arteries using Low Osmolar Contrast (ICD-10-PCS; principal; 2019-10-16 10:18)
PROC: 03CL0ZZ Extirpation of Matter from Left Internal Carotid Artery, Open Approach (ICD-10-PCS; 2019-10-21)
PROC: 03UL0JZ Supplement Left Internal Carotid Artery with Synthetic Substitute, Open Approach (ICD-10-PCS; 2019-10-21)
PROC: 02100Z9 Bypass Coronary Artery, One Artery from Left Internal Mammary, Open Approach (ICD-10-PCS; 2019-10-23)
PROC: 021109W Bypass Coronary Artery, Two Arteries from Aorta with Autologous Venous Tissue, Open Approach (ICD-10-PCS; 2019-10-23)
PROC: 06BM0ZZ Excision of Right Femoral Vein, Open Approach (ICD-10-PCS; 2019-10-23)
PROC: 5A1221Z Performance of Cardiac Output, Continuous (ICD-10-PCS; 2019-10-23)
PROC: B24BZZ4 Ultrasonography of Heart with Aorta, Transesophageal (ICD-10-PCS; 2019-10-23)
DX: I25.110 Atherosclerotic heart disease of native coronary artery with unstable angina pectoris (principal); E87.1 Hypo-osmolality and hyponatremia; I48.92 Unspecified atrial flutter; I10 Essential (primary) hypertension; I16.0 Hypertensive urgency; E87.6 Hypokalemia; I65.23 Occlusion and stenosis of bilateral carotid arteries; I71.9 Aortic aneurysm of unspecified site, without rupture; G47.00 Insomnia, unspecified; E87.5 Hyperkalemia

== ENCOUNTER 2019-11-10 11:45 | Emergency (ER) | payer SELFPAY ==
[~2019-11-10] VITALS: Ht 157.5 cm; Wt 54.5 kg
[~2019-11-10 11:45] MED LIST changes: +BETAPACE 80 MG80 MG PO; +METOPROLOL TART50 MG PO; +PERCOCET 5-3251 TAB PO; +TRIBENZOR 40-11 EAC1 PO
[2019-11-10 12:01] VITALS: Ht 157.5 cm; Wt 54.5 kg
[2019-11-10] MEDS ORDERED: LISINOPRIL10 MG PO (14:43)
[2019-11-10 16:45] VITALS: BP 193/116
== END 2019-11-10 16:15 | disposition home or self-care (01) ==
LOC: D.ER 11:45
DX: I10 Essential (primary) hypertension (principal); Z95.1 Presence of aortocoronary bypass graft; I25.10 Atherosclerotic heart disease of native coronary artery without angina pectoris; K21.9 Gastro-esophageal reflux disease without esophagitis

== ENCOUNTER → 2019-11-19 08:34 | Outpatient (CLI) | payer SELFPAY ==
[2019-11-10 12:01] VITALS: BMI 22.0
[~2019-11-19 08:34] MED LIST changes: +LISINOPRIL10 MG PO
[2019-11-19 09:06] LABS: BASOPHILS 0.5 % (0-2); EOSINOPHILS 5.2 % (0-7); HEMOGLOBIN 12.9 g/dL (12-16); IMMATURE GRANULOCYTES 0.2 % (0-5); LYMPHOCYTES 29.6 % (15-50); MCH 31.2 pg (26.0-34.0); MCHC 32.3 g/dL (31.0-37.0); MCV 96.9 fL (80.0-100.0); MEAN PLATELET VOLUME 8.6 fL (7.4-10.4); MONOCYTES 12.3 % (2-11); NEUTROPHILS 52.2 % (40-80); RBC 4.13 10x6/uL (4.00-5.40); RDW 16.7 % (11.5-14.5); WBC 5.8 10x3/uL (4.8-10.8)
[2019-11-19 09:08] LABS: PLATELET COUNT 381 10x3/uL (130-400)
[2019-11-19 09:18] LABS: ANION GAP 8.7 mmol/L (8-16); CALCIUM 8.4 mg/dL (8.5-10.1); CARBON DIOXIDE 30.7 mmol/L (21.0-32.0); POTASSIUM - SERUM 3.4 mmol/L (3.5-5.1)
== END | disposition home or self-care (01) ==
LOC: D.RAD 08:34
PROVIDERS: ATTEND Thoracic Surgery (Cardiothoracic Vascular Surgery)
DX: I25.10 Atherosclerotic heart disease of native coronary artery without angina pectoris (principal); Z95.1 Presence of aortocoronary bypass graft